=== PATIENT | male | born 1970 | race Caucasian/White ===

== ENCOUNTER 2021-03-04 17:03 | Emergency (ER) | payer OTHER ==
[~2021-03-04] VITALS: Ht 182.9 cm; Wt 86.2 kg
[2021-03-04 18:05] LABS: ABSOLUTE NEUTROPHILS 3.8 thou/uL (1.4-8.2); BASOPHILS 0.5 % (0.0-2.0); HEMATOCRIT 48.1 % (42.0-52.0); HEMOGLOBIN 16.7 gm/dL (14.0-18.0); LYMPHOCYTES 15.4 % (24.0-44.0); MCHC 34.7 g/dL (28.0-37.0); MCV 89.2 fL (80.0-100.0); MONOCYTES 7.6 % (1.0-8.0); PLATELET COUNT 137 thou/uL (150-400); POLYS 76.5 % (36.0-66.0); RDW 13.3 % (10.5-14.5); WBC 4.9 thou/uL (4.0-11.0)
[2021-03-04 18:14] LABS: CALCIUM 9.2 mg/dL (8.5-10.1); CREATININE 1.2 mg/dL (0.7-1.3); POTASSIUM 3.9 mmol/L (3.5-5.1)
[2021-03-04 18:20] LABS: ALBUMIN 3.9 g/dL (3.4-5.0); TOTAL BILIRUBIN 0.9 mg/dL (0.2-1.0); TOTAL PROTEIN 7.6 g/dL (6.4-8.2)
[2021-03-04 19:16] VITALS: BP 125/88
[2021-03-04] MEDS ORDERED: ZPAK PO (19:23)
== END 2021-03-04 19:23 | disposition home or self-care (01) ==
LOC: ER 17:03
PROVIDERS: Nurse Practitioner
DX: U07.1 COVID-19 (principal); R53.83 Other fatigue; R50.9 Fever, unspecified; Z91.011 Allergy to milk products

== ENCOUNTER 2021-03-07 18:14 | Inpatient (IN) | payer OTHER ==
[~2021-03-07] VITALS: Ht 182.9 cm; Wt 63.3 kg
[~2021-03-07 18:14] MED LIST: ZPAK PO
[2021-03-07 18:19] VITALS: BP 199/169
--- NOTE | 2021-03-07 18:25 | NUR ---
PT PLACED ON 4L NC IN TRIAGE
[2021-03-07 19:03] LABS: ABSOLUTE NEUTROPHILS 6.2 thou/uL (1.4-8.2); BASOPHILS 0.2 % (0.0-2.0); HEMATOCRIT 43.5 % (42.0-52.0); LYMPHOCYTES 8.3 % (24.0-44.0); MCH 30.8 pg (26.0-34.0); MCHC 34.5 g/dL (28.0-37.0); MCV 89.4 fL (80.0-100.0); MONOCYTES 4.4 % (1.0-8.0); PLATELET COUNT 217 thou/uL (150-400); POLYS 87.1 % (36.0-66.0); RBC 4.87 mil/uL (4.50-6.00); RDW 13.4 % (10.5-14.5); WBC 7.2 thou/uL (4.0-11.0)
[2021-03-07 19:07] LABS: BE(vivo) -1.7 mmol/L (-2 to +3); PCO2 34.7 mmHg (35.0-45.0); PO2 129.1 mmHg (80.0-100.0); sO2 98.6 % (92.0-98.0)
--- NOTE | 2021-03-07 19:07 | NUR ---
-REGIS HOLM [id number]
[2021-03-07 19:13] LABS: CALCIUM 8.3 mg/dL (8.5-10.1); CREATININE 1.1 mg/dL (0.7-1.3)
[2021-03-07 19:17] LABS: ALBUMIN 2.9 g/dL (3.4-5.0); TOTAL BILIRUBIN 0.8 mg/dL (0.2-1.0); TOTAL PROTEIN 6.8 g/dL (6.4-8.2)
[2021-03-07 21:44] VITALS: BP 134/78
[2021-03-07 22:10] VITALS: BP 135/79
[2021-03-08] VITALS (30 sets, daily range): BP systolic 120–166; BP diastolic 68–105
--- NOTE | 2021-03-08 07:30 | EKG ---
[address] [address] ELECTROCARDIOGRAM REPORT Name: BELLA HOLM MARQUIS Room #: 356-P ADM IN M.R.#: [id number] Admission: 03/07/21 Attend Phys: Nelson Diana MD Discharge: Date of : 72 Report #: [id number] [facility] ED Test Date: 2021-03-07 Test Time: 18:40:17 Pat Name: BELLA HOLM Department: Room: 356 Gender: M Clinical Therapist: MELITA : 1970 Requested By: Taurus Acevedo Order Number: [id number] MD: Marquis Benton Measurements Intervals [place] Rate: 89 P: 41 VA: 130 QRS: 26 QRSD: 87 T: -8 QT: 346 QTc: 421 Interpretive Statements Sinus rhythm Left atrial enlargement Borderline T wave abnormalities No previous ECG available for comparison Electronically Signed On 03-08-2021 7:30:41 CDT by Marquis Benton [email or web address] <ELECTRONICALLY SIGNED> By: Marquis Benton MD, [facility] 03/08/21 0730 [id number] Marquis Bentno MD, FACC /EPI
--- NOTE | 2021-03-08 07:47 | NUR ---
PT ARRIVED FROM ER ON OPTIFLOW. ADMISSION COMPLETED, CARE PLAN IN PLACE AND INTERVENTIONS STARTED. PT A/0X4, FROM HOME AND DID NOT RECEIVE THE VACCINE. PT COMPLAINT WAS DUE TO FORCE OF OPTIFLOW, PT PLACED BACK ON NRB. VSS, AND PT ORIENTATED TO ROOM.
--- NOTE | 2021-03-08 13:56 | NUR ---
INITIAL ASSESSMENT: Received consult. SW reviewed chart and spoke with nursing and attending physician. Pt was admitted from home due to COVID. Pt has not received a COVID vaccine. Pt had first positive COVID test on 03/01. Pt came to the [facility] ER on 03/04 and then returned to the ER on 03/07 due to worsening COVID symptoms. Pt is afebrile and requiring high flow O2. Pt is on IV steroids. Pt transferred to ICU from . Per chart, pt is alert/orientated x 4. 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 Pt lives at home with his . Pt does not have health insurance. [facility] to screen pt for [place]-Medicaid application. SW to follow up with pt and/or family at a later time to obtain info for assessment and to assist as needed with discharge planning.
--- NOTE | 2021-03-08 14:42 | NUR ---
PT ARRIVED TO THE UNIT FROM 3W W/ RN AND WARNING COORDINATION METEOROLOGIST ESCORT. PT ARRIVED ON 15L NRB SAT AT 95% W/ RR OF >35. PT ORDERED BY TO BE ON BIPAP PRN NEEDED, PICC LINE INSERTION ORDERED WELL. WAS NOTIFIED, PT 4 DIGIT CODE PROVIDED GIVEN IDENTIFY VERIFICATION TO THE , PT BELONGING INCLUDES PHONE, AND CLOTHING. RT SETTING UP OPTIFLOW TREATMENT AT THIS TIME. PT WAS ABLE TO TOLERATE SIPS OF WATER FOR MEDS BUT WAS SEEN TO BE IN DISTRESS. PT WAS ORIENTED TO THE UNIT AND ITS STAFF MEMBERS. ALL APPROPERIATE ORDERED MEDICATION RUNNING AT THIS TIME, FIRST DOSE OF REMDESEVIR PROVIDED. RN WILL CONTINUE TO MONITOR AT THIS TIME
[2021-03-08 17:11] LABS: D-DIMER 0.68 ug/mLFEU (0.19-0.50)
--- NOTE | 2021-03-08 17:34 | NUR ---
CONSULTED TO PLACE A PICC FOR A PATIENT ADMITTED WITH COVID/SEPSIS. ORDER AND CONSENT NOTED. THE PROCEDURE WELL BENIFITS AND RISKS WERE DISCUSSED AND HE VERBALIZED UNDERSTANDING. THE RIGHT BASILIC WAS WIDLEY PATENT. A #5F TRIPLE LUMEN POWER PICC WAS PLACED AFTER A BEDSIDE TIMEOUT WAS COMPLETED. THE LINE WAS TRIMMED TO 45CM AND ADVANCED TO 1CM EXTERNAL. THE LINE WAS CONFIRMED WITH SHERLOCK 3CG AND RELEASED FOR USE
[2021-03-08 17:59] LABS: FIBRINOGEN > 860 mg/dL (201-437)
--- NOTE | 2021-03-08 20:54 | NUR ---
Pt's called for an updates.
--- NOTE | 2021-03-08 23:15 | NUR ---
Pt is well tolerating Intubation procedure. Start propofol gtt for vent management. Will ontain CXR stat.
[2021-03-09] VITALS (88 sets, daily range): BP systolic 100–186; BP diastolic 63–105
[2021-03-09 00:13] LABS: BE(vivo) -3.1 mmol/L (-2 to +3); HCO3 22.7 mmol/L (22.0-26.0); PCO2 43.5 mmHg (35.0-45.0); PO2 195.9 mmHg (80.0-100.0); pH 7.336 (7.360-7.450); sO2 99.3 % (92.0-98.0)
--- NOTE | 2021-03-09 00:24 | NUR ---
Updates family (his father and his ) regarding of current conditions post intubation. All questions were answered. Will call family with any changes on his status.
[2021-03-09 01:54] LABS: URINE BILIRUBIN NEGATIVE (Negative); URINE BLOOD 2+ (Negative); URINE CLARITY CLEAR; URINE COLOR YELLOW; URINE GLUCOSE-RANDOM* NEGATIVE (Negative); URINE KETONES NEGATIVE (Negative); URINE LEUKOCYTES-REFLEX NEGATIVE (Negative); URINE NITRITE-REFLEX NEGATIVE (Negative); URINE PROTEIN (DIPSTICK) NEGATIVE (Negative); URINE SPECIFIC GRAVITY 1.015 (1.005-1.035); URINE UROBILINOGEN 0.2 E.U./dl (0.2-1.0)
[2021-03-09 02:06] LABS: SQUAMOUS 0-3 Few /LPF (0-3)
[2021-03-09 02:07] LABS: BACTERIA-REFLEX 1-9 Few /HPF (None Seen); CASTS None Seen /LPF (None Seen); CRYSTALS None Seen /LPF (None Seen); MUCUS 0-3 Light strn/LPF (None Seen); URINE RBC 3-10 Few /HPF (NONE SEEN); URINE WBC-REFLEX 0-5 Rare /HPF (0-5)
[2021-03-09 05:23] LABS: ABSOLUTE NEUTROPHILS 5.8 thou/uL (1.4-8.2); BASOPHILS 0.2 % (0.0-2.0); HEMATOCRIT 40.6 % (42.0-52.0); HEMOGLOBIN 13.8 gm/dL (14.0-18.0); LYMPHOCYTES 12.9 % (24.0-44.0); MCH 30.9 pg (26.0-34.0); MCV 90.9 fL (80.0-100.0); MONOCYTES 4.9 % (1.0-8.0); RBC 4.47 mil/uL (4.50-6.00); RDW 13.4 % (10.5-14.5); WBC 7.1 thou/uL (4.0-11.0)
[2021-03-09 06:03] LABS: PLATELET COUNT 313 thou/uL (150-400)
[2021-03-09 06:40] LABS: CREATININE 0.8 mg/dL (0.7-1.3); DIRECT BILIRUBIN 0.1 mg/dL (<0.1-0.2); POTASSIUM 4.3 mmol/L (3.5-5.1); TOTAL BILIRUBIN 0.4 mg/dL (0.2-1.0)
[2021-03-09 06:41] LABS: ALBUMIN 2.3 g/dL (3.4-5.0); CALCIUM 7.9 mg/dL (8.5-10.1); PHOSPHORUS 3.6 mg/dL (2.6-4.7); TOTAL PROTEIN 6.2 g/dL (6.4-8.2)
--- NOTE | 2021-03-09 08:11 | NUR ---
Call pt's family and updates them again this morning. All questions were answered to them. Re-assuring family that we will call them if there is any changes of his conditions. Report hand off to day shift RN.
--- NOTE | 2021-03-09 08:11 | NUR ---
Updates pt's father regarding of his current conditions.
--- NOTE | 2021-03-09 10:57 | NUR ---
Chart review. Vent. COVID +. Transfered down yesterday from 3w. Covid tx in place. Remdesivir. ID following. No anticipated dc over the weekend. Will cont following as needed for dc needs.
--- NOTE | 2021-03-09 11:41 | NUR ---
Nutrition: Pt npo day 2, intubated. If appropriate to start enteral feeds, REC Vital HP to reach 60 mL/hr with current propofol demands.
[2021-03-09 17:34] LABS: CREATININE 0.8 mg/dL (0.7-1.3); MAGNESIUM 1.7 mg/dL (1.8-2.4); POTASSIUM 3.5 mmol/L (3.5-5.1)
[2021-03-09 17:41] LABS: CALCIUM 5.9 mg/dL (8.5-10.1)
--- NOTE | 2021-03-09 20:09 | NUR ---
1500: dad updated 1530: pt having SB mid 30s with PAT, BMP,MG labs drawn and EKG ordered. Results: Ca:5.9; K:3.5; M.7 ; Dr wynne. 1600: updated 1800: EKG: SB with PACs
[2021-03-10] VITALS (41 sets, daily range): BP systolic 101–154; BP diastolic 60–94
[2021-03-10 02:06] LABS: HIV ANTIBODY Non Reactive (Non Reactive)
[2021-03-10 05:06] LABS: HEMATOCRIT 38.8 % (42.0-52.0); HEMOGLOBIN 14.2 gm/dL (14.0-18.0); MCH 32.9 pg (26.0-34.0); MCHC 36.6 g/dL (28.0-37.0); RBC 4.31 mil/uL (4.50-6.00); RDW 13.2 % (10.5-14.5); WBC 7.8 thou/uL (4.0-11.0)
[2021-03-10 06:50] LABS: ALBUMIN 2.2 g/dL (3.4-5.0); ANION GAP 8 mmol/L (7-16); BUN 19 mg/dL (7-18); CHLORIDE 111 mmol/L (98-107); CO2 25 mmol/L (21-32); CREATININE 0.9 mg/dL (0.7-1.3); DIRECT BILIRUBIN < 0.1 mg/dL (<0.1-0.2); GLUCOSE 143 mg/dL (74-106); PHOSPHORUS 2.8 mg/dL (2.6-4.7); SGOT 22 U/L (15-37); SGPT 20 U/L (16-63); SODIUM 144 mmol/L (136-145); TOTAL BILIRUBIN 0.4 mg/dL (0.2-1.0); TOTAL PROTEIN 5.7 g/dL (6.4-8.2)
[2021-03-10 06:55] LABS: CALCIUM 8.2 mg/dL (8.5-10.1); POTASSIUM 4.6 mmol/L (3.5-5.1)
--- NOTE | 2021-03-10 08:03 | NUR ---
1929-SPOKE W/ PT'S FATHER ON PHONE, UPDATES PROVIDED. 2149-SPOKE W/ PT'S , UPDATES PROVIDED. 2129-DOPAMINE OFF D/T ELEVATED BP. 2199-PLACED ON BAREHUGGER D/T LOW TEMPS. 2229--INCREASED FIO2 TO 50%. TOOK BAREHUGGER OFF AROUND 0400. NO FURTHER CONCERNS.
--- NOTE | 2021-03-10 12:21 | EKG ---
[address] [address] ELECTROCARDIOGRAM REPORT Name: BELLA HOLM Room #: 236-P ADM IN M.R.#: [id number] Admission: 03/07/21 Attend Phys: Nelson Diana MD Discharge: Date of : 72 Report #: [id number] [facility] Test Date: 2021-03-09 Test Time: 18:15:40 Pat Name: BELLA HOLM Department: Room: 236 P Gender: M Stock Trader: FSCHWALBE : 1970 Requested By: Nelson Diana Order Number: [id number] MD: Drew Suarez Measurements Intervals [place] Rate: 45 P: 54 TX: 129 QRS: 74 QRSD: 98 T: 54 QT: 479 QTc: 415 Interpretive Statements Sinus bradycardia Atrial premature complex Compared to ECG 03/07/2021 18:40:17 Atrial premature complex(es) now present Sinus rhythm no longer present Atrial abnormality no longer present T-wave abnormality no longer present Electronically Signed On 03-10-2021 12:21:08 CDT by Drew Suarez [email or web address] <ELECTRONICALLY SIGNED> By: Drew Suarez MD 03/10/21 1221 1815 1815 Drew Suarez MD /EPI
--- NOTE | 2021-03-10 20:23 | NUR ---
MORNING AND AFTERNOON: , MOTHER, AND FATHER ALL UPDATED REGARDING PT STATUS
[2021-03-11] VITALS (18 sets, daily range): BP systolic 142–176; BP diastolic 87–101
[2021-03-11 05:55] LABS: HEMATOCRIT 41.1 % (42.0-52.0); MCH 30.8 pg (26.0-34.0); MCHC 33.9 g/dL (28.0-37.0); MCV 90.7 fL (80.0-100.0); RBC 4.54 mil/uL (4.50-6.00); RDW 13.5 % (10.5-14.5); WBC 8.9 thou/uL (4.0-11.0)
[2021-03-11 06:21] LABS: ALBUMIN 2.1 g/dL (3.4-5.0); CALCIUM 7.3 mg/dL (8.5-10.1); CREATININE 0.8 mg/dL (0.7-1.3); DIRECT BILIRUBIN 0.1 mg/dL (<0.1-0.2); PHOSPHORUS 2.4 mg/dL (2.5-4.9); POTASSIUM 4.4 mmol/L (3.5-5.1); TOTAL BILIRUBIN 0.4 mg/dL (0.2-1.0); TOTAL PROTEIN 5.5 g/dL (6.4-8.2)
--- NOTE | 2021-03-11 08:20 | NUR ---
ASSUMED CARE AT 1900. 2200-SPOKE W/ PT'S FATHER, GAVE UPDATE. 2300-PLACED ON BAREHUGGER. 0000-SPOKE TO PT'S , GAVE UPDATE. MAINTAINED DRIPS AT SAME RATE OVERNIGHT, NO CHANGES TO VENT SETTINGS. NOTED TO HAVE HIGH RESIDUALS DESPITE LOW RATE ON TUBE FEED. HYPOACTIVE BOWEL SOUNDS, W/SOME TYPMANIC/TINKLING NOISES THIS AM. SLOW PROGRESSION TOWARDS GOALS.
--- NOTE | 2021-03-11 15:42 | NUR ---
ASSUMED CARE OF PATIENT AT 0600. FOUND PATIENT ON SETTINGS OF 20/450/.50 +14. DURING THE SHIFT I WAS ABLE TO TITRATE THE PATIENT TO 40% AND 12 OF PEEP AND HE HAS MAINTAINED HIS SATURATION AND SHOWN NO SIGNS OF DISTRESS. WE WILL BEGIN PRONING THIS PATIENT PER DR MICHELLE THE MORNING OF 03/12 AT 0100.
[2021-03-12] VITALS (48 sets, daily range): BP systolic 99–159; BP diastolic 57–100
[2021-03-12 05:42] LABS: HEMATOCRIT 36.5 % (42.0-52.0); HEMOGLOBIN 12.6 gm/dL (14.0-18.0); MCH 31.3 pg (26.0-34.0); MCHC 34.6 g/dL (28.0-37.0); MCV 90.3 fL (80.0-100.0); RBC 4.04 mil/uL (4.50-6.00); RDW 13.3 % (10.5-14.5); WBC 7.4 thou/uL (4.0-11.0)
[2021-03-12 06:18] LABS: ALBUMIN 1.8 g/dL (3.4-5.0); ANION GAP 11 mmol/L (7-16); BUN 14 mg/dL (7-18); CALCIUM 6.3 mg/dL (8.5-10.1); CHLORIDE 109 mmol/L (98-107); CO2 22 mmol/L (21-32); CREATININE 0.6 mg/dL (0.7-1.3); DIRECT BILIRUBIN < 0.1 mg/dL (<0.1-0.2); GLUCOSE 140 mg/dL (74-106); PHOSPHORUS 1.8 mg/dL (2.6-4.7); POTASSIUM 3.9 mmol/L (3.5-5.1); SGPT 30 U/L (16-63); SODIUM 142 mmol/L (136-145); TOTAL BILIRUBIN 0.5 mg/dL (0.2-1.0); TOTAL PROTEIN 4.5 g/dL (6.4-8.2)
[2021-03-12 06:24] LABS: SGOT 23 U/L (15-37)
--- NOTE | 2021-03-12 07:35 | EKG ---
[address] [address] ELECTROCARDIOGRAM REPORT Name: BELLA HOLM MARQUIS Room #: 236-P ADM IN M.R.#: [id number] Admission: 03/07/21 Attend Phys: Nelson Diana MD Discharge: Date of : 72 Report #: [id number] [facility] Test Date: 2021-03-11 Test Time: 18:55:20 Pat Name: BELLA HOLM Department: Room: 236 P Gender: M Station Examiner: 0 : 1970 Requested By: Nelson Diana Order Number: [id number] MD: Marquis Benton Measurements Intervals [place] Rate: 41 P: 43 AK: 128 QRS: 75 QRSD: 109 T: 40 QT: 539 QTc: 446 Interpretive Statements Sinus bradycardia Borderline T wave abnormalities Borderline ST elevation, anterior leads Baseline wander in lead(s) V3 Compared to ECG 03/09/2021 18:15:40 T-wave abnormality now present ST (T wave) deviation now present Atrial premature complex(es) no longer present Electronically Signed On 03-12-2021 7:34:46 CDT by Marquis Benton [email or web address] <ELECTRONICALLY SIGNED> By: Marquis Benton MD, [facility] 03/12/21 0734 1855 54 Marquis Benton MD, [facility] /EPI
--- NOTE | 2021-03-12 07:40 | NUR ---
ASSUMED CARE AT 1900. PLACED BAREHUGGER ON PT EARLY IN SHIFT D/T COOL TEMPS. BEGAN TITRATING SEDATION DOWN TO IMPROVE HEART RATE. 2149-SPOKE W/ PT'S FATHER, GAVE UPDATE. SLOWLY PROGRESSING TOWARDS GOALS.
[2021-03-12 08:48] LABS: BE(vivo) -0.9 mmol/L (-2 to +3); HCO3 26.4 mmol/L (22.0-26.0); PCO2 54.1 mmHg (35.0-45.0); pH 7.307 (7.360-7.450)
--- NOTE | 2021-03-12 15:30 | NUR ---
chart review. COVID+, Discussed during los. Vent, nutritional support. Cont on enhanced isolation. Bedside nurses have provided updates to his family. Will cont following as needed for dc needs.
[2021-03-12 22:10] LABS: CALCIUM 6.7 mg/dL (8.5-10.1); CREATININE 0.8 mg/dL (0.7-1.3); POTASSIUM 4.2 mmol/L (3.5-5.1)
[2021-03-13] VITALS (55 sets, daily range): BP systolic 14–196; BP diastolic 36–110
[2021-03-13 05:11] LABS: PO2 83.9 mmHg (80.0-100.0); pH 7.368 (7.360-7.450); sO2 95.9 % (92.0-98.0)
[2021-03-13 05:15] LABS: ABSOLUTE NEUTROPHILS 7.6 thou/uL (1.4-8.2); BASOPHILS 0.5 % (0.0-2.0); HEMATOCRIT 40.9 % (42.0-52.0); HEMOGLOBIN 14.3 gm/dL (14.0-18.0); LYMPHOCYTES 11.4 % (24.0-44.0); MCH 31.6 pg (26.0-34.0); MCHC 35.1 g/dL (28.0-37.0); MONOCYTES 5.5 % (1.0-8.0); PLATELET COUNT 401 thou/uL (150-400); POLYS 82.6 % (36.0-66.0); RBC 4.54 mil/uL (4.50-6.00); RDW 13.4 % (10.5-14.5); WBC 9.2 thou/uL (4.0-11.0)
[2021-03-13 06:09] LABS: ALBUMIN 2.1 g/dL (3.4-5.0); CALCIUM 6.7 mg/dL (8.5-10.1); CREATININE 0.6 mg/dL (0.7-1.3); POTASSIUM 4.5 mmol/L (3.5-5.1); TOTAL BILIRUBIN 1.1 mg/dL (0.2-1.0)
[2021-03-13 06:25] LABS: TOTAL PROTEIN 5.2 g/dL (6.4-8.2)
[2021-03-13 06:31] LABS: DIRECT BILIRUBIN < 0.1 mg/dL (<0.1-0.2); PHOSPHORUS 3.6 mg/dL (2.5-4.9); TRIGLYCERIDE 1072 mg/dL (<150)
--- NOTE | 2021-03-13 10:27 | NUR ---
Patient's , Samantha, and mom, Jessa, updated on patient condition and plan of care. Questions answered.
--- NOTE | 2021-03-13 18:01 | NUR ---
Patient proned at 1500, increased sedation to allow patient to tolerate. Patient attempted to sit up while in prone position. Dr. Kendall notified. ok to increase sedation parameters.
[2021-03-14] VITALS (64 sets, daily range): BP systolic 115–189; BP diastolic 69–110
[2021-03-14 05:18] LABS: ABSOLUTE NEUTROPHILS 7.3 thou/uL (1.4-8.2); BASOPHILS 0.4 % (0.0-2.0); EOSINOPHILS 0.2 % (0.0-3.0); HEMATOCRIT 40.6 % (42.0-52.0); HEMOGLOBIN 14.2 gm/dL (14.0-18.0); LYMPHOCYTES 10.7 % (24.0-44.0); MCH 31.3 pg (26.0-34.0); MCV 89.5 fL (80.0-100.0); MONOCYTES 5.4 % (1.0-8.0); PLATELET COUNT 332 thou/uL (150-400); POLYS 83.3 % (36.0-66.0); RBC 4.54 mil/uL (4.50-6.00); RDW 12.9 % (10.5-14.5); WBC 8.8 thou/uL (4.0-11.0)
[2021-03-14 05:45] LABS: ALBUMIN 2.2 g/dL (3.4-5.0); CALCIUM 7.4 mg/dL (8.5-10.1); CREATININE 0.5 mg/dL (0.7-1.3); DIRECT BILIRUBIN 0.2 mg/dL (<0.1-0.2); PHOSPHORUS 3.3 mg/dL (2.5-4.9); POTASSIUM 4.5 mmol/L (3.5-5.1); TOTAL PROTEIN 5.2 g/dL (6.4-8.2)
--- NOTE | 2021-03-14 08:20 | NUR ---
updated on patient condition overnight. She requested to have MD call a family member who is a doctor. Dr. Ayers at [phone]. Dr. Kendall notified and given information.
--- NOTE | 2021-03-14 12:23 | NUR ---
Work note delivered to bedside nurse for when family comes to hospital to get pt cell phone, family know they are not able to visit r/t COVID +.
--- NOTE | 2021-03-14 12:51 | NUR ---
Work release letter and patient's cell phone sent home with patient's . She was updated on patient condition and plan of care at this time as well.
[2021-03-15] VITALS (81 sets, daily range): BP systolic 90–164; BP diastolic 54–104
[2021-03-15 05:02] LABS: BE(vivo) 4.4 mmol/L (-2 to +3); HCO3 29.9 mmol/L (22.0-26.0); PO2 80.9 mmHg (80.0-100.0); pH 7.413 (7.360-7.450)
[2021-03-15 05:39] LABS: BASOPHILS 0.2 % (0.0-2.0); EOSINOPHILS 0.3 % (0.0-3.0); HEMATOCRIT 39.4 % (42.0-52.0); HEMOGLOBIN 13.5 gm/dL (14.0-18.0); LYMPHOCYTES 6.8 % (24.0-44.0); MCH 30.4 pg (26.0-34.0); MCHC 34.3 g/dL (28.0-37.0); MCV 88.8 fL (80.0-100.0); MONOCYTES 5.9 % (1.0-8.0); PLATELET COUNT 311 thou/uL (150-400); POLYS 86.8 % (36.0-66.0); RBC 4.44 mil/uL (4.50-6.00); RDW 12.8 % (10.5-14.5); WBC 9.3 thou/uL (4.0-11.0)
[2021-03-15 06:04] LABS: ALBUMIN 2.2 g/dL (3.4-5.0); CALCIUM 7.3 mg/dL (8.5-10.1); CREATININE 0.6 mg/dL (0.7-1.3); DIRECT BILIRUBIN 0.2 mg/dL (<0.1-0.2); PHOSPHORUS 2.7 mg/dL (2.5-4.9); POTASSIUM 4.4 mmol/L (3.5-5.1); TOTAL BILIRUBIN 1.1 mg/dL (0.2-1.0); TOTAL PROTEIN 5.1 g/dL (6.4-8.2)
--- NOTE | 2021-03-15 06:56 | NUR ---
Spoke with RT Shaun at this time to relay Dr. Kendall's order to advance ETT 4-5 cm. RT Shaun to be at pt's beside shortly.
[2021-03-15 09:29] LABS: T-SPOT.TB Negative
--- NOTE | 2021-03-15 15:07 | NUR ---
PT IS PROGRESSING TOWARDS DISCHARGE AT THIS TIME, PRONING BEING DONE ON A SHIFT BASIS, PT APPEARS ADQUEATELY SEDATED AND RELAXED AT THIS TIME, PT'S FAMILY MEMBER () CALLED, RN PROVIDED CURRENT CLINICAL PICTURE, PT'S ASKED WHETHER PT IS GETTING BETTER OR NOT, RN STATED THAT IT HAS BEEN A WHILE SINCE RN HAD THE PT SO DOES NOT KNOW THE PROGRESS BUT STATED THAT HE IS ON 40% ON VENTILATOR. RN ALSO STATED THAT EVERYDAY PTS ARE EVALUATED FOR WHETHER APPROPERIATE FOR ABILITY TO COME OFF OF VENTILATOR AND IS THE MD'S DECISION.
[2021-03-16] VITALS (29 sets, daily range): BP systolic 101–169; BP diastolic 69–128
--- NOTE | 2021-03-16 05:26 | NUR ---
PT HAD SHORT EPISODE OF TACHYCARDIA AT BEGINNING OF SHIFT, PASSED GAS AND SMALL STOOL AND HR NORMALIZED IN THE 70'S. BRADYCARDIA INTERMITTENTLY, PRECEDEX TITRATED DOWN. PT TOLERATED PRONING WELL, PROCESS OF SUPINATION WAS SMOOTH AND UNEVENTFUL. FACIAL EDEMA AND NOTED SMALL ESCORIATION ON FACE FROM DEVICE USED TO ELEVATE HEAD FROM BED. SATS >95% ON FI02 OF 40%. TOLERATING TF AFTER DOSE OF REGLAN.
[2021-03-16 05:36] LABS: ALBUMIN 2.3 g/dL (3.4-5.0); CALCIUM 7.8 mg/dL (8.5-10.1); CREATININE 0.5 mg/dL (0.7-1.3); DIRECT BILIRUBIN 0.2 mg/dL (<0.1-0.2); POTASSIUM 4.6 mmol/L (3.5-5.1); TOTAL PROTEIN 5.5 g/dL (6.4-8.2)
--- NOTE | 2021-03-16 08:21 | NUR ---
Sedation vacation beginning at 0750 - fentanyl and versed held, precedex still running at 1.2. Pt became tachycardic into 130's and overbreathing vent but maintaining O2 and BP. RN to titrate back on per plan.
--- NOTE | 2021-03-16 14:51 | NUR ---
Chart review, discussed during am unite rounds and los. +COVID, remains on vent with nutritional support. prone as ordered by MD. Spoke with [place] via phone call, no concerns voiced. will cont. following s needed for dc needs.
[2021-03-17] VITALS (23 sets, daily range): BP systolic 107–170; BP diastolic 68–111
[2021-03-17 06:43] LABS: ABSOLUTE NEUTROPHILS 5.6 thou/uL (1.4-8.2); BASOPHILS 0.1 % (0.0-2.0); EOSINOPHILS 0.7 % (0.0-3.0); HEMATOCRIT 38.3 % (42.0-52.0); HEMOGLOBIN 13.1 gm/dL (14.0-18.0); LYMPHOCYTES 11.4 % (24.0-44.0); MCH 30.6 pg (26.0-34.0); MCHC 34.2 g/dL (28.0-37.0); MCV 89.5 fL (80.0-100.0); MONOCYTES 14.9 % (1.0-8.0); PLATELET COUNT 295 thou/uL (150-400); POLYS 72.9 % (36.0-66.0); RBC 4.28 mil/uL (4.50-6.00); RDW 12.9 % (10.5-14.5); WBC 7.7 thou/uL (4.0-11.0)
[2021-03-17 07:10] LABS: ALBUMIN 2.4 g/dL (3.4-5.0); CALCIUM 7.8 mg/dL (8.5-10.1); CREATININE 0.5 mg/dL (0.7-1.3); POTASSIUM 4.4 mmol/L (3.5-5.1); TOTAL BILIRUBIN 1.1 mg/dL (0.2-1.0); TOTAL PROTEIN 5.2 g/dL (6.4-8.2)
--- NOTE | 2021-03-17 07:14 | NUR ---
PT INTERMITTENTLY WAKING, SOMETIMES SPONTANEOUSLY AND SOMETIMES AFTER NURSING CARES, HR INCREASING UP TO 150'S, BP 160'S/100'S. REQUIRING INCREASING SEDATION TO CALM, DOES NOT RESPOND TO VERBAL REDIRECTION. FOLLOWS COMMANDS AND INTERACTS BY NODDING HEAD. WHILE RESTING, HR DECREASES DOWN TO 40'S, SEDATION LIGHTENED SLOWLY ACCORDINGLY TO KEEP HR >55. INCREASED UOP, TOLERATES TURNS, NO BM. NOT TOLERATING TF.
[2021-03-18] VITALS (57 sets, daily range): BP systolic 100–182; BP diastolic 64–120
--- NOTE | 2021-03-18 06:50 | NUR ---
ABLE TO COORDINATE FACETIME WITH PARENTS AND WITH . PT EXTREMELY RESTLESS AT BEGINNING OF SHIFT, EVENTUALLY SETTLED DOWN AFTER SOME PUSHES AND SEROQUEL. RESTING QUIETLY FOR REST OF SHIFT.
--- NOTE | 2021-03-18 11:38 | NUR ---
1050HRS - PT'S CALLED AND WAS INFORMED AND UPDATED ON PT CONDITION.
--- NOTE | 2021-03-18 22:18 | NUR ---
Patient was agitated at beginning of PM shift, maxed on sedation medication. Informed Dr. Kendall, order for propofol given. No other changes at this time.
--- NOTE | 2021-03-18 22:54 | NUR ---
Spoke with patients father dot gave him a update, all questions and concerns were updated
[2021-03-19] VITALS (90 sets, daily range): BP systolic 75–162; BP diastolic 48–106
[2021-03-19 03:27] LABS: ABSOLUTE NEUTROPHILS 8.6 thou/uL (1.4-8.2); BASOPHILS 0.3 % (0.0-2.0); EOSINOPHILS 0.1 % (0.0-3.0); HEMATOCRIT 41.1 % (42.0-52.0); HEMOGLOBIN 13.9 gm/dL (14.0-18.0); LYMPHOCYTES 9.3 % (24.0-44.0); MCH 30.4 pg (26.0-34.0); MCHC 33.9 g/dL (28.0-37.0); MCV 89.8 fL (80.0-100.0); MONOCYTES 10.5 % (1.0-8.0); PLATELET COUNT 321 thou/uL (150-400); POLYS 79.8 % (36.0-66.0); RBC 4.58 mil/uL (4.50-6.00); RDW 12.8 % (10.5-14.5); WBC 10.7 thou/uL (4.0-11.0)
[2021-03-19 03:42] LABS: ALBUMIN 2.8 g/dL (3.4-5.0); CALCIUM 8.5 mg/dL (8.5-10.1); CREATININE 0.7 mg/dL (0.7-1.3); POTASSIUM 4.3 mmol/L (3.5-5.1); TOTAL BILIRUBIN 1.3 mg/dL (0.2-1.0); TOTAL PROTEIN 5.8 g/dL (6.4-8.2)
[2021-03-19 04:17] LABS: BE(vivo) 2.6 mmol/L (-2 to +3); HCO3 27.1 mmol/L (22.0-26.0); PCO2 41.5 mmHg (35.0-45.0); pH 7.433 (7.360-7.450); sO2 96.7 % (92.0-98.0)
--- NOTE | 2021-03-19 09:56 | NUR ---
0955HRS - PT'S CALLED AND WAS UPDATED AND INFORMED OF HER 'S CONDITION.
--- NOTE | 2021-03-19 11:13 | NUR ---
0830HRS - BMX1 SOFT AND PASSED GAS
--- NOTE | 2021-03-19 13:27 | NUR ---
Chart review, discussed during am unite rounds and los with hospitalist. Bedside nurse cont. update and his father via phone call. Vent, cpap trials and sed vacation. Nutritional support. Will cont. following as needed for dc needs.
[2021-03-20] VITALS (86 sets, daily range): BP systolic 80–151; BP diastolic 45–104
[2021-03-20 02:36] LABS: HEMATOCRIT 42.1 % (42.0-52.0); HEMOGLOBIN 14.2 gm/dL (14.0-18.0); MCH 30.5 pg (26.0-34.0); MCHC 33.6 g/dL (28.0-37.0); MCV 90.6 fL (80.0-100.0); RBC 4.65 mil/uL (4.50-6.00); RDW 13.1 % (10.5-14.5); WBC 20.7 thou/uL (4.0-11.0)
[2021-03-20 02:44] LABS: CALCIUM 8.5 mg/dL (8.5-10.1); CREATININE 0.7 mg/dL (0.7-1.3); POTASSIUM 4.4 mmol/L (3.5-5.1)
[2021-03-20 05:23] LABS: BE(vivo) 5.4 mmol/L (-2 to +3); HCO3 30.2 mmol/L (22.0-26.0); PCO2 44.3 mmHg (35.0-45.0); PO2 73.5 mmHg (80.0-100.0); pH 7.451 (7.360-7.450); sO2 95.3 % (92.0-98.0)
--- NOTE | 2021-03-20 19:06 | NUR ---
PATIENT CONTINUES WITH PLAN OF CARE. POSSIBLE TRACH AND PEG TOMORROW. DR CARY TO DISCUSS WITH FAMILY. PATIENT CONTINUES ON SEDATION MEDICATIONS. BM TODAY. ADEQUATE URINE OUTPUT. SPOKE WITH ABOUT PATIENT UPDATE.
--- NOTE | 2021-03-20 21:36 | NUR ---
Spoke with patient after receiving patient security code. All questions and concerns were addressed. However, would like to speak with Dr before giving consent for tracheostomy and PEG tube placement. Will pass information to dayshift RN.
[2021-03-21] VITALS (36 sets, daily range): BP systolic 89–155; BP diastolic 58–100
[2021-03-21 04:48] LABS: CALCIUM 7.6 mg/dL (8.5-10.1); CREATININE 0.5 mg/dL (0.7-1.3); HEMATOCRIT 40.8 % (42.0-52.0); HEMOGLOBIN 13.7 gm/dL (14.0-18.0); MCH 30.6 pg (26.0-34.0); MCHC 33.7 g/dL (28.0-37.0); MCV 90.7 fL (80.0-100.0); POTASSIUM 3.8 mmol/L (3.5-5.1); RBC 4.49 mil/uL (4.50-6.00); RDW 13.3 % (10.5-14.5); WBC 12.4 thou/uL (4.0-11.0)
--- NOTE | 2021-03-21 11:05 | NUR ---
Discussed during los with hospitalist and unite rounds. Going for trach/peg around 1430 today. Will cont following as needed for dc needs.
--- NOTE | 2021-03-21 15:13 | NUR ---
ON THE VENT, SEDATED BUT RESTLESS. VITALS STABLE. OGT CLAMPED, NPO FOR PEG AND TRACH. SPOUSE UPDATED OVER THE PHONE. OUT OF UNIT FOR PEG/TRACH AT 1500.
--- NOTE | 2021-03-21 16:30 | NUR ---
BACK FROM O.R. TRACH AND PEG IN PLACE.
[2021-03-22] VITALS (26 sets, daily range): BP systolic 72–183; BP diastolic 44–113
[2021-03-22 05:27] LABS: HEMATOCRIT 39.9 % (42.0-52.0); HEMOGLOBIN 13.5 gm/dL (14.0-18.0); MCH 30.5 pg (26.0-34.0); MCHC 33.8 g/dL (28.0-37.0); MCV 90.3 fL (80.0-100.0); RBC 4.41 mil/uL (4.50-6.00); RDW 13.2 % (10.5-14.5); WBC 16.4 thou/uL (4.0-11.0)
[2021-03-22 05:45] LABS: CALCIUM 8.3 mg/dL (8.5-10.1); CREATININE 0.7 mg/dL (0.7-1.3); POTASSIUM 3.9 mmol/L (3.5-5.1)
--- NOTE | 2021-03-22 07:47 | NUR ---
Spoke with pt on phone, gave updates on CPAP trials and current status.
[2021-03-22 09:56] LABS: BE(vivo) 3.2 mmol/L (-2 to +3); HCO3 27.3 mmol/L (22.0-26.0); PCO2 40.1 mmHg (35.0-45.0); PO2 69.4 mmHg (80.0-100.0); pH 7.451 (7.360-7.450); sO2 94.7 % (92.0-98.0)
--- NOTE | 2021-03-22 10:55 | NUR ---
Trach placed 03/21 bleeding heavily even after RT intervention. fisher pound net or trap assessed and changed dressing. 10 minutes later bedside RN checked on pt to find significant amount of blood draining from trach down pt chest and left arm. Per RT, surgeon who placed trach has been notified.
--- NOTE | 2021-03-22 11:09 | NUR ---
WOUND CONSULT; I WAS CONSULTED TO ASSESS THE TRACH SITE AND GIVE RECCOMMENDATIONS RELATED TO MANAGEING THE DRAINAGE. THE TRACHE IS SUTURED IN TIGHTLY AND IT IS DIFFICULT TO GET HARDLY ANY DRESSINGS UNDER IT. THERE IS TEZ BLOOD I'M TOLD THE PATIENT IS COUGHING UP. RECOMMENDATIONS; -I WILL CONSULT DR TAN LINDO OR HIS ASSESSMENT. -FOR NOW USING BARRIER SWABS TO PROTECT THE SKIN AND A FOAM DRESSING. DISCUSSED WITH RN AND RESPIRATORY STAFF.
--- NOTE | 2021-03-22 12:01 | NUR ---
[employer] will re look into medicaid for [facility]. He go trach and peg yesterday. Will cont following as needed for dc needs. No anticipated dc over the weekend.
[2021-03-22 13:11] LABS: HEMATOCRIT 40.5 % (42.0-52.0); HEMOGLOBIN 13.8 gm/dL (14.0-18.0); MCH 30.8 pg (26.0-34.0); MCHC 34.2 g/dL (28.0-37.0); MCV 90.3 fL (80.0-100.0); RBC 4.49 mil/uL (4.50-6.00); RDW 13.4 % (10.5-14.5); WBC 18.8 thou/uL (4.0-11.0)
[2021-03-22 13:28] LABS: APTT 24.3 Seconds (24.5-32.8); D-DIMER 3.65 ug/mLFEU (0.19-0.50); INR 1.08; PROTIME 11.7 Seconds (10.5-12.1)
--- NOTE | 2021-03-22 13:47 | NUR ---
During morning rounds approx 0900 MD Loera came to pt room, looked through window at pt and new trach, then left the floor. RN was in the room at this time, trach noted to be bleeding down pt chest. Per RT, dressing had been changed twice. stripper machine operator consulted, changed dressing to pink sponge, but bleeding persisted. Per RT, Luz Maria had been notified of trach concerns. RN paged MD Loera at 1200, spoke with front office staff who paged MD. When Dr. Loera called back, RN spoke with him about profuse bleeding and concerns. stated some bleeding was normal but he would come take a look. Around 1215 RN re-entered room to find clots and blood coming from pt mouth and around trach. MD arrived, asked for gauze and assessed bleeding. RT entered room to help hold pressure on active site, RN sent coag studies and CBC to lab, called blood bank to confirm type and cross status. Palm sized clots and continuous bleeding from trach and mouth. Dr. Loera left room to gather supplies and call the OR. Bedside RN called with no answer, and then called mother listed as secondary to get consent for surgery. , Samantha, called back and confirmed consent for blood and surgery. Anesthesia arrived to take over holding pressure from another bedside RN and to transport pt to OR. New blood bank wristband placed on pt, labs pending.
--- NOTE | 2021-03-22 15:33 | NUR ---
Pt returned from OR around 1500. Right radial art line with good waveform, pt tachycardic and hypertensive but resolved when sedation resumed. Per Dr. Greene he has updated pt mother, RN to update pt .
--- NOTE | 2021-03-22 16:09 | NUR ---
Per Leanna Holloway pt is no longer required to be on COVID isolation.
[2021-03-22 16:26] LABS: HEMATOCRIT 37.8 % (42.0-52.0); HEMOGLOBIN 12.9 gm/dL (14.0-18.0); MCH 30.7 pg (26.0-34.0); MCHC 34.1 g/dL (28.0-37.0); MCV 89.9 fL (80.0-100.0); RBC 4.21 mil/uL (4.50-6.00); WBC 22.1 thou/uL (4.0-11.0)
[2021-03-22 16:44] LABS: CALCIUM 8.1 mg/dL (8.5-10.1); CREATININE 0.8 mg/dL (0.7-1.3); POTASSIUM 3.8 mmol/L (3.5-5.1)
[2021-03-22 16:48] LABS: ALBUMIN 2.8 g/dL (3.4-5.0)
--- NOTE | 2021-03-22 17:33 | NUR ---
Dr. Shell at bedside, pt systolics persistently below 90. Per Dr. Shell begin levo for MAP >90. Overall pressure held on bleeding site pre-op for approx 75 min. Pt art line waveform noted to be dampened, upon further inspection pressure bag of fluids running into art line was heparin. RN changed entire set and primed with saline. updated on current status.
[2021-03-22 21:43] LABS: HEMATOCRIT 37.5 % (42.0-52.0); HEMOGLOBIN 12.5 gm/dL (14.0-18.0); MCH 30.2 pg (26.0-34.0); MCHC 33.4 g/dL (28.0-37.0); MCV 90.4 fL (80.0-100.0); RBC 4.15 mil/uL (4.50-6.00); RDW 13.3 % (10.5-14.5)
[2021-03-23] VITALS (22 sets, daily range): BP systolic 72–130; BP diastolic 42–90
[2021-03-23 05:56] LABS: HEMATOCRIT 34.8 % (42.0-52.0); MCHC 34.5 g/dL (28.0-37.0); RBC 3.87 mil/uL (4.50-6.00); RDW 13.3 % (10.5-14.5); WBC 18.2 thou/uL (4.0-11.0)
[2021-03-23 06:10] LABS: CALCIUM 7.8 mg/dL (8.5-10.1); CREATININE 0.6 mg/dL (0.7-1.3); POTASSIUM 3.9 mmol/L (3.5-5.1)
--- NOTE | 2021-03-23 06:38 | NUR ---
ASSUMED CARE AT 1900. SPOKE TO PT'S FATHER AT 2019, NO CONCERNS NOTED. PT BECAME RESTLESS AROUND 2129, INCREASED SEDATION WHICH REDUCED RESTLESS MOVEMENT. 2100-STARTED TUBE FEED AT 10 ML/HR; GAVE ONE WATER BOLUS AT MIDNIGHT. RESIDUALS KEPT CLIMBING OVERNIGHT; PRIOR TO STARTING TUBE FEED, GASTRIC CONTENT WAS 75 ML; IN AM, RESIDUAL WAS OVER 200. 0255-SPOKE TO PT'S AND UPDATED, NO CONCERNS NOTED. SLOW PROGRESSION TOWARDS GOALS.
--- NOTE | 2021-03-23 09:15 | NUR ---
RN spoke with pt , updated him on current condition and plan. Informed he is off COVID isolation and resting.
--- NOTE | 2021-03-23 13:12 | NUR ---
currently on FaceTime with patient.
--- NOTE | 2021-03-23 13:58 | NUR ---
Unable to go to [facility]. trach and peg. here in [place] medicaid meeting with hanna. CM team education that it would be with [employer] and not case management team for medicaid jenelle. She did face time with zach today per report from bedside nurse. Cont following as needed for dc needs. No anticipated discharge over the weekend. Out of isolation. Discussed during los and unite rounds.
--- NOTE | 2021-03-23 14:49 | NUR ---
Pt mother, fully vaccinated, visited bedside for 15 mintues. She insisted on wearing gloves and just holding his hand to say hello. Asked about his progress and vent settings, stated she was worried when he didn't recieve the vaccine earlier this year but is pleased with his progress this week. Stated she would call later for an update.
[2021-03-24] VITALS (66 sets, daily range): BP systolic 74–150; BP diastolic 40–93
[2021-03-24 04:51] LABS: HEMATOCRIT 33.4 % (42.0-52.0); HEMOGLOBIN 11.3 gm/dL (14.0-18.0); MCH 30.8 pg (26.0-34.0); MCHC 33.9 g/dL (28.0-37.0); RBC 3.67 mil/uL (4.50-6.00); RDW 13.5 % (10.5-14.5); WBC 12.5 thou/uL (4.0-11.0)
[2021-03-24 05:11] LABS: CALCIUM 7.5 mg/dL (8.5-10.1); CREATININE 0.5 mg/dL (0.7-1.3); POTASSIUM 3.4 mmol/L (3.5-5.1)
--- NOTE | 2021-03-24 07:23 | NUR ---
ASSUMED CARE AT 1900. SPOKE TO PT'S FATHER AT 2100, UPDATE GIVEN, NO CONCERNS NOTED. SMALL AMOUNT PURULENT DRAINAGE AROUND TRACH. FREQ TITRATION OF SEDATION AND LEVO TO MAINTAIN APPROPR BP. SLOW PROGRESSION TOWARDS GOALS.
--- NOTE | 2021-03-24 20:31 | NUR ---
PATIENT SLOWLY PROGRESSING TOWARDS PLAN OF CARE EVIDENCED BY LACK OF NEED OF LEVOPHED, HOWEVER, STILL REQUIRING SIGNIFICANT AMOUNT OF SEDATION. PATIENT'S , REGIS FACETIMED WITH PATIENT FROM 1434 - 1450.
[2021-03-25] VITALS (34 sets, daily range): BP systolic 103–151; BP diastolic 64–97
[2021-03-25 00:03] LABS: CALCIUM 7.7 mg/dL (8.5-10.1); CREATININE 0.5 mg/dL (0.7-1.3); POTASSIUM 3.8 mmol/L (3.5-5.1)
[2021-03-25 05:02] LABS: ABSOLUTE NEUTROPHILS 10.8 thou/uL (1.4-8.2); BASOPHILS 0.4 % (0.0-2.0); EOSINOPHILS 1.1 % (0.0-3.0); HEMATOCRIT 32.2 % (42.0-52.0); HEMOGLOBIN 11.2 gm/dL (14.0-18.0); LYMPHOCYTES 11.3 % (24.0-44.0); MCH 31.3 pg (26.0-34.0); MCHC 34.8 g/dL (28.0-37.0); MCV 90.1 fL (80.0-100.0); MONOCYTES 8.2 % (1.0-8.0); PLATELET COUNT 287 thou/uL (150-400); RBC 3.57 mil/uL (4.50-6.00); RDW 13.4 % (10.5-14.5); WBC 13.7 thou/uL (4.0-11.0)
[2021-03-25 06:05] LABS: ALBUMIN 2.5 g/dL (3.4-5.0); CALCIUM 7.7 mg/dL (8.5-10.1); CREATININE 0.4 mg/dL (0.7-1.3); MAGNESIUM 1.8 mg/dL (1.8-2.4); POTASSIUM 3.5 mmol/L (3.5-5.1); TOTAL BILIRUBIN 0.8 mg/dL (0.2-1.0); TOTAL PROTEIN 5.5 g/dL (6.4-8.2)
--- NOTE | 2021-03-25 06:47 | NUR ---
ASSUMED CARE AT 1900. SPOKE TO PT'S FATHER AT 2114, UPDATED, NO CONCERNS NOTED. SOFT BP AT START OF SHIFT, TITRATED SEDATION DOWN SLIGHTLY, PT BECAME MORE RESTLESS THROUGHOUT THE NIGHT, NO COMMAND FOLLOWING, INCREASED SEDATION BACK UP. AROUND MIDNIGHT, BEGAN HAVING PINK TINGED URINE, NOW THIS AM URINE IS DEEPER RED COLOR W/ SOME CLOTS/SEDIMENT PRESENT. NO BLOOD NOTED AROUND THE MEATUS. CONTINUES TO HAVE MODERATE AMOUNT OF THICK PURULENT/DARK RED DRAINAGE AROUND THE TRACH SITE, AND OCCASIONAL DARK BLOOD IN MOUTH. NO OTHER CONCERNS, POOR PROGRESSION TOWARDS GOALS.
--- NOTE | 2021-03-25 15:56 | NUR ---
Beginning around 1545 on [place] talking to pt.
[2021-03-26] VITALS (79 sets, daily range): BP systolic 79–171; BP diastolic 53–114
[2021-03-26 05:53] LABS: ABSOLUTE NEUTROPHILS 8.3 thou/uL (1.4-8.2); BASOPHILS 0.6 % (0.0-2.0); EOSINOPHILS 1.1 % (0.0-3.0); HEMATOCRIT 30.4 % (42.0-52.0); HEMOGLOBIN 10.2 gm/dL (14.0-18.0); LYMPHOCYTES 13.9 % (24.0-44.0); MCH 30.3 pg (26.0-34.0); MCHC 33.5 g/dL (28.0-37.0); MCV 90.3 fL (80.0-100.0); MONOCYTES 9.4 % (1.0-8.0); PLATELET COUNT 251 thou/uL (150-400); RBC 3.37 mil/uL (4.50-6.00); RDW 13.7 % (10.5-14.5); WBC 11.1 thou/uL (4.0-11.0)
[2021-03-26 06:00] LABS: CALCIUM 7.7 mg/dL (8.5-10.1); CREATININE 0.5 mg/dL (0.7-1.3); MAGNESIUM 1.6 mg/dL (1.8-2.4); POTASSIUM 3.1 mmol/L (3.5-5.1)
--- NOTE | 2021-03-26 06:23 | NUR ---
ASSUMED CARE AT 1900. SPOKE TO PT'S FATHER AT 2100, NO CONCERNS NOTED FROM CALL. NECK IS STILL SWOLLEN AROUND TRACH SITE AND CONTINUES TO HAVE DARK RED/BROWN/PURULENT DRAINAGE. PT CONTINUES TO HAVE FIBROUS CLOTS IN URINE. ABLE TO SQUEEZE HANDS TO COMMAND, POOR EYE TRACKING. INTERMITTENTLY RESTLESS, BUT SEEMED TO SLEEP FOR SEVERAL HOURS DURING THE NIGHT. BP LOW THIS AM AND HR IN 50'S; BEGAN TITRATING SEDATION DOWN WHICH HELPED PT WAKE UP AND BP/HR GO UP. THIS AM, PT HAS NODDED HEAD SLIGHTLY WHEN ASKED QUESTIONS WELL SQUEEZING FINGERS. POTASSIUM AND MAG LOW ON LABS, STARTED REPLACEMENT PER PROTOCOL. SLOWLY PROGRESSING TOWARDS GOALS.
--- NOTE | 2021-03-26 10:16 | NUR ---
WOUND CARE F/U; ASSESSMENT OF THE TRACH SITE REVEALS NO WOUND OF BLEEDING. OTHERWISE, A NORMAL LOOKING TRACH SITE. NO NEED TO FOLLOW WOUND CARE WILL SIGN OFF. RECONSULT IF NEEDED.
--- NOTE | 2021-03-26 10:20 | NUR ---
WOUND CONSULT; REVIEWED THER PICTURES WHICH ONLY PARTIAL THICKNESS TEAR WITH CLEANRLY FRAYED EDGES. NO DRAINAGE OR S/S OF INFECTION. ALTHOUGH I CANNOT R/O PRESSURE ETIOLOGY. THE WOUND IS SACRAL/COCCYX AREAS. RECCOMMENDATIONS; BARRIER CREAM TID. RN PRESENT.
[2021-03-26 13:25] LABS: POTASSIUM 3.9 mmol/L (3.5-5.1)
--- NOTE | 2021-03-26 14:55 | NUR ---
Chart review, discussed during am unite rounds and los. Vent, nutritional support per trach and peg. Out of isolation, r/t hx of covid. Will cont following as needed for dc needs. [employer] has been in contact with family about covid coverage and medicaid.
--- NOTE | 2021-03-26 19:00 | NUR ---
PATIENT IS STABLE AND PROGRESSING SLOWLY TOWARDS OUTCOME GOALS. PROPOFOL WEANED OFF TODAY AND DOPAMINE NOW AT 2MCG MONITOR IS SHOWING NSR WITH HEART RATE IN THE 60'S. TOLERATING TUBE FEEDING WITH SMALL RESIDUALS. CVP 7 TO 10 AFTER LASIX. WILL CONTINUE TO MONITOR.
--- NOTE | 2021-03-26 19:28 | NUR ---
PATIENT REMAINS STABLE ON VENT. TRACH HEALING, NOTED SOME SWELLING AROUND SITE. SURGERY NOTED, NO CONCERNS. OKAY TO START TUBE FEEDING, INITIATE SLOWLY AT 10 ML/HR PER DR. CARY. ATTEMPTING TO WEAN SEDATION BUT PATIENT BECOMES TACYCARDIC AND RESTLES WITH LIGHTENED SEDATION. REPLACED ELECTROLYTES PER PROTOCOL. MOTHER AT BEDSIDE TODAY. UPDATED AND SET UP FACETIME IN ROOM. LOW GRADE TEMP - TYLENOL GIVEN.
[2021-03-27] VITALS (58 sets, daily range): BP systolic 105–168; BP diastolic 71–106
--- NOTE | 2021-03-27 08:07 | NUR ---
ASSUME CARE 1900. PT/VITALS STABLE. NAP NOTED. MOVES RAMIREZ LOWER EXTREMITY. OPENS EYES AND MOVES HEAD SOMETIMES, BUT EYES DO NOT TRACT. TACHE IN PLACE WITH MODERATE SANGUINOUS DRAINAGE NOTED. TRACHE SITE CARE DONE. FECAL MANAGEMENT TUBE SYSTEM IN PLACE/LIQUID STOOL NOTED. ADEQUATE URINE OUTPUT. COUGH.GAG REFLEX NOTED. SR ON MONITOR. ASSESSMENT CHARTED. PROGRESSING MODERATELY WITH POC. POOR TOLERANCE TO TUBE FEED. INCREASED RESIDUAL. TUBE FEED STILL RUNNING AT 10ML/HR WITH 250 FLUSHES Q6H. PLAN IS TO CONTINUE TO MANAGE RESPIRATORY FUNCTION AND WEAN PT OFF VENT. WILL CONTINUE TO MONITOR AND FOLLOW WITH POC
--- NOTE | 2021-03-27 09:51 | NUR ---
Pt on FT with - set up by side of bed.
--- NOTE | 2021-03-27 10:59 | NUR ---
Mother of patient asked family general lot attendant to come by - general lot attendant currently at bedside speaking with patient.
--- NOTE | 2021-03-27 13:26 | NUR ---
Pt mom at bedside since 1300, reading to pt and keeping company.
[2021-03-28] VITALS (36 sets, daily range): BP systolic 59–150; BP diastolic 32–94
--- NOTE | 2021-03-28 01:42 | NUR ---
ASSUMED CARE OF PATIENT AT 1900. FATHER CALLED AND RECIEVED UPDATE AT 2030. CALLED AND FACETIMED WITH PATIENT AT 2200. PATIENT RESTLESS, TACHYCARDIC. ANSWERS YES/NO QUESTIONS. WORKING TOWARDS POC GOALS.
[2021-03-28 03:49] LABS: ABSOLUTE NEUTROPHILS 11.6 thou/uL (1.4-8.2); BASOPHILS 0.5 % (0.0-2.0); EOSINOPHILS 0.6 % (0.0-3.0); HEMATOCRIT 35.2 % (42.0-52.0); LYMPHOCYTES 10.3 % (24.0-44.0); MCH 30.7 pg (26.0-34.0); MCHC 34.2 g/dL (28.0-37.0); MCV 89.7 fL (80.0-100.0); MONOCYTES 7.1 % (1.0-8.0); PLATELET COUNT 269 thou/uL (150-400); POLYS 81.5 % (36.0-66.0); RBC 3.93 mil/uL (4.50-6.00); RDW 14.1 % (10.5-14.5); WBC 14.2 thou/uL (4.0-11.0)
[2021-03-28 04:05] LABS: ALBUMIN 2.8 g/dL (3.4-5.0); CALCIUM 8.5 mg/dL (8.5-10.1); CREATININE 0.5 mg/dL (0.7-1.3); POTASSIUM 3.4 mmol/L (3.5-5.1); TOTAL BILIRUBIN 1.5 mg/dL (0.2-1.0); TOTAL PROTEIN 5.9 g/dL (6.4-8.2)
[2021-03-28 04:59] LABS: BE(vivo) 2.5 mmol/L (-2 to +3); HCO3 26.3 mmol/L (22.0-26.0); PCO2 37.9 mmHg (35.0-45.0); PO2 70.6 mmHg (80.0-100.0); pH 7.459 (7.360-7.450)
--- NOTE | 2021-03-28 09:12 | NUR ---
Pt on FaceTime with . RN gave updates on clinical status.
--- NOTE | 2021-03-28 10:19 | NUR ---
Dr. Loera at bedside, stated trach looks much better than last week. Keep Ancef on for 7 days, okay to increase tube feeds/work towards goal rate.
--- NOTE | 2021-03-28 11:49 | NUR ---
Around 1100 pt bp acutely dropped to MAP in 40's, pt no longer opening eyes. RN called Dr. Kendall, begin liter of saline wide open, begin levo, sedation on hold.
--- NOTE | 2021-03-28 12:39 | NUR ---
Pt mother at bedside for visit.
--- NOTE | 2021-03-28 15:34 | NUR ---
Cm team passed on message that has question on visiting. Cm called malachi via phone call, active listen during phone call, she stated she been talking with counseling because she alone and miss being with zach and they were going to get covid vaccine together and i did not know i have to have it to visit per tearful. Education that not required to visit but covid patient can not have visitor r/t safety for visitor, he is out of isolation today but noted he has elevated temp and might want to talk with his mom and dad about visiting. I got the 1st vaccine and don't get 2nd one till 04/13 and i just want to be able to hold his hand. CM education that should check with nurse staff to see how he is doing next few days and maybe could visit. ok thank you so much for calling me back, i just miss him per malachi. Will cont following as needed for dc needs.
[2021-03-28 17:29] LABS: URINE COLOR YELLOW
[2021-03-28 17:30] LABS: URINE CLARITY CLOUDY; URINE PROTEIN (DIPSTICK) TRACE (Negative)
[2021-03-28 17:31] LABS: URINE BILIRUBIN NEGATIVE (Negative); URINE BLOOD 3+ (Negative); URINE GLUCOSE-RANDOM* NEGATIVE (Negative); URINE KETONES 2+ (Negative); URINE NITRITE-REFLEX POSITIVE (Negative)
[2021-03-28 17:32] LABS: URINE LEUKOCYTES-REFLEX 2+ (Negative); URINE UROBILINOGEN 0.2 E.U./dl (0.2-1.0)
[2021-03-28 17:38] LABS: BACTERIA-REFLEX >30 Many /HPF (None Seen); SQUAMOUS None Seen /LPF (0-3); URINE RBC 3-10 Few /HPF (NONE SEEN); URINE WBC-REFLEX >25 Many /HPF (0-5)
[2021-03-29] VITALS (44 sets, daily range): BP systolic 105–141; BP diastolic 61–84
--- NOTE | 2021-03-29 05:03 | NUR ---
ASSUMED CARE AT 1900. PT ALERT AND CALM, FOLLOWING COMMANDS. INCREASED TUBE FEED TO 30 ML/HR AT 1999, PT HAS TOLERATED WELL OVERNIGHT, HAS LOW RESIDUALS AND DENIED NAUSEA. 2214-SPOKE TO PT'S MOTHER, GAVE UPDATE ON THE EVENING, NO CONCERNS NOTED. 2229-DR. GUERRERO CALLED, GAVE HER AN UPDATE ON PT'S MENTAL STATUS, VS, AND CURRENT MEDICATIONS. 2249-PT'S CALLED, GAVE HER AN UPDATE ON HIS CONDITION, NO CONCERNS NOTED. TAPERING LEVOPHED DOWN OVERNIGHT. PT CONTINUES TO HAVE RESP RATE IN UPPER 30'S, WITH LARGE AMOUNTS OF SECRETIONS DRAINING AROUND THE TRACH TUBE. PT PROGRESSING TOWARDS GOALS.
--- NOTE | 2021-03-29 13:17 | NUR ---
able to FaceTime this AM for several minutes before work. Stated she was excited to come visit this weekend. Mother currently at bedside.
--- NOTE | 2021-03-29 16:05 | NUR ---
Chart review, discussed during am unite rounds this morning and los with hospitalist. Trach and peg with cpap trials. Therapy to work with zach. No anticipated dc over the weekend. Will cont following as needed for dc needs.
--- NOTE | 2021-03-29 16:53 | NUR ---
Pt worked with PT, sat up on side of the bed feet touching floor. Tolerated well. Pt now on FaceTime with , Samantha. Pt responding, nodding yes and no and smiling while speaking with .
--- NOTE | 2021-03-29 21:45 | NUR ---
PATIENT'S MOTHER, DERECK, CALLED FROM [phone] AND SHE WAS UPDATED AND EDUCATED ON THE PATIENT'S CONDITION AND PLAN OF CARE.
[2021-03-30] VITALS (22 sets, daily range): BP systolic 122–156; BP diastolic 68–92
[2021-03-30 05:09] LABS: ABSOLUTE NEUTROPHILS 9.9 thou/uL (1.4-8.2); BASOPHILS 0.9 % (0.0-2.0); EOSINOPHILS 0.6 % (0.0-3.0); HEMOGLOBIN 10.1 gm/dL (14.0-18.0); LYMPHOCYTES 4.7 % (24.0-44.0); MCH 31.6 pg (26.0-34.0); MCV 90.2 fL (80.0-100.0); PLATELET COUNT 241 thou/uL (150-400); POLYS 84.8 % (36.0-66.0); RBC 3.21 mil/uL (4.50-6.00); RDW 14.3 % (10.5-14.5); WBC 11.6 thou/uL (4.0-11.0)
[2021-03-30 05:22] LABS: ALBUMIN 2.3 g/dL (3.4-5.0); CALCIUM 8.1 mg/dL (8.5-10.1); CREATININE 0.7 mg/dL (0.7-1.3); MAGNESIUM 1.7 mg/dL (1.8-2.4); POTASSIUM 3.2 mmol/L (3.5-5.1); TOTAL PROTEIN 5.8 g/dL (6.4-8.2)
--- NOTE | 2021-03-30 10:16 | NUR ---
Patient proned per order at 0945. Patient desated to 61%, and only recovered to 76% after [address] Kendall notified. Patient unproned at 1000 and sat down to 42%. Dr Kendall notified and PEEP increase to 16 cm and pcxr pending Breathe sound coarse in the upper lobes and diminished in the bases.
--- NOTE | 2021-03-30 19:30 | NUR ---
PATIENT PROGRESSING IN DISMISSAL GOALS PATIENT CHANGED TO CCU STATUS. PATIENT ON TRACH MASK MOST OF DAY TOLERATING WELL. OFF SEDATIONS. VSS. PATIENT GIVEN DIULADIDX2 TODAY AND SEROQUEL PRN. FAMILY AT BEDSIDE TODAY.
--- NOTE | 2021-03-30 22:13 | NUR ---
This RN spoke to patients , mother and father at 2130. Discussed transfer orders to CCU and gave family new patient room and phone number. Plan to transfer patient to room 202 soon. Will continue to watch.
--- NOTE | 2021-03-31 01:07 | NUR ---
PT ARRIVED FROM ICU AT APPROXIMATELY MDNIGHT ALONG WITH RN X2 AND RT. PT ARRIVED ON VENTILATOR AND WAS TACHYNEIC WITH RATES IN 40'S. PER RT THIS IS WITHIN PATIENTS USUAL RATE. PT SMILING, COOPERATIVE, RATING TRACH AREA PAIN 4/10 AND TOLERABLE AT THIS TIME. SHORTLY AFTER ARRIVAL PT HEART RATE CLIMBED TO 140'S, O2 SAT FELL TO MID 80'S, RESPIRATORY RATE CLIMBED INTO THE 50'S AND PT WAS POINTING AT HIS CHEST. RT WAS PRESENT. PT REMOVED FROM VENT AND MANUALLY BAGGED. THIS RN GAVE DOSE OF VERSED. MANUAL BAGGING LASTED FOR APPROXIMATELY 10 MINUTES UNTIL PT APPEARD TO BE CALMING DOWN (NO LONGER FROWNING, NO LONGHER HOLDING HIS HAND UP AND SHAKING, RESPIRATORY RATE RETURNING TO 40'S). VENTILATOR RESUMED BY RT. WILL CLOSELY MONITOR.
--- NOTE | 2021-03-31 03:52 | NUR ---
ON VENTILATOR OVERNIGHT. MORE RELAXED SINCE DOSEING WITH VERSED. RESPIRATORY RATE REMAINS IN 40'S. PT ABLE TO SMILE AT TIMES. ATTEMPTED TO COMMUNICATE WITH PT VIA HAND WRITING BUT IT WAS TOO POOR TO BE ABLE TO DECIFER WHAT HE WAS WRITING. X1 DOSE OF DILAUDID FOR THROAT/TRACH DISCOMFORT. CONTINUE TO MONITOR.
[2021-03-31 04:32] VITALS: BP 143/90
[2021-03-31 07:26] VITALS: BP 159/107
[2021-03-31 11:12] VITALS: BP 173/93
--- NOTE | 2021-03-31 17:59 | NUR ---
PATIENT HAS RESTED IN BED THROUGH THE DAY. HE DOES HAVE RAPID RESP. AND DR SANCHEZ NOTED. ADJUSTMENT MADE TO VENT. HE IS ALERT ORIENTED X4. NOT ABLE TO VERBAILIZE NEEDS BUT IS APPROPRAITE IN RESPONSES.
[2021-03-31 19:40] VITALS: BP 124/64
[2021-03-31 20:12] LABS: HEMATOCRIT 30.8 % (42.0-52.0); HEMOGLOBIN 10.5 gm/dL (14.0-18.0); MCH 30.7 pg (26.0-34.0); MCHC 34.3 g/dL (28.0-37.0); MCV 89.7 fL (80.0-100.0); RBC 3.43 mil/uL (4.50-6.00); RDW 14.3 % (10.5-14.5); WBC 15.7 thou/uL (4.0-11.0)
[2021-03-31 20:21] LABS: CALCIUM 7.5 mg/dL (8.5-10.1); CREATININE 0.6 mg/dL (0.7-1.3); POTASSIUM 3.7 mmol/L (3.5-5.1)
[2021-04-01 00:06] VITALS: BP 128/64
[2021-04-01 04:07] VITALS: BP 137/55
--- NOTE | 2021-04-01 06:32 | NUR ---
Took over care of pt. after 1999. Elevated temp of 101.6 axillary reported to SENIOR MARKETING ENGINEER and order received. Tylenol given with good relief and has been afebrile since. Initially pt. drowsy and not following commands but once fever subsided he started waking up , smiling and following commands. Skin color back to normal , pale looking in the beginning. Family ( dad and ) called to get an update on pt. Pt. has been tachypneic at beginning of shift with RR in the 40's to 50's. Suctioned prn and oral care done. He has been repositioned prn for comfort. He slept well most of the night and awake when being turned. Tube feeding held all night per order then resume this am around 0530. RT titrated FIO2 down to 50% around 0400. MN BG reads 56 , pt. awake and responsive at that time. Rechecked BG and reads 109. SENIOR MARKETING ENGINEER notified. Incontinent of med soft bm. Protective barrier applied to buttocks.
[2021-04-01 08:00] VITALS: BP 129/76
[2021-04-01 12:23] VITALS: BP 142/79
[2021-04-01 16:00] VITALS: BP 155/84; BP 1558/84
--- NOTE | 2021-04-01 18:53 | NUR ---
RT MOVED PT TO TRACH SHIELD WITHOUT ANY ISSUE. 02 SATURATIONS ARE IN MID 90'S AND IT DECREASED PT ANXIETY AND RESPIRATIONS. TUBE FEEDING AND IVPB ANTIBIOTICS PER POC. VENEGAS IN PLACE.
[2021-04-01 20:20] VITALS: BP 153/91
[2021-04-02 04:28] VITALS: BP 152/88
[2021-04-02 07:15] VITALS: BP 128/85
--- NOTE | 2021-04-02 07:41 | NUR ---
PATIENT FEBRILE,TYLENOL GIVEN,TEMP DECREASED TO 99.6.AROUND 0340 THIS AM PT HAS EPISODE OF LABORED BREATHING,RT INCREASED FIO2 TO 100%,SO FAR PT DID NOT DESAT.RT SAID PT DOES THIS AT NIGHT;PT IS VERY ANXIOUS TOO;MEDS GIVEN.PT FELL ASLEEP.REPORT GIVEN TO DAY SHIFT RN.
[2021-04-02 10:37] LABS: ABSOLUTE NEUTROPHILS 15.4 thou/uL (1.4-8.2); EOSINOPHILS 0.2 % (0.0-3.0); HEMATOCRIT 29.4 % (42.0-52.0); HEMOGLOBIN 9.9 gm/dL (14.0-18.0); LYMPHOCYTES 2.5 % (24.0-44.0); MCH 30.6 pg (26.0-34.0); MCHC 33.7 g/dL (28.0-37.0); MCV 90.7 fL (80.0-100.0); MONOCYTES 5.7 % (1.0-8.0); PLATELET COUNT 249 thou/uL (150-400); POLYS 90.6 % (36.0-66.0); RBC 3.25 mil/uL (4.50-6.00); RDW 14.6 % (10.5-14.5)
--- NOTE | 2021-04-02 10:41 | NUR ---
Assumed care of pt this AM. Pt is oriented x4, very sleepy. Pt remains on vent/trach, settings 100% FiO2, PEEP 5, TV 600. Pt has some thin, white drainage from around trach site. Pt running fever, given PRN tylenol. Respiratory rate up in the 50s & tachycardic. Dr. Crook notified. Specimens for sputum, trach site, and urine sent this AM for culture. at bedside this AM, answered all questions. Will continue to assess pt needs throughout shift.
[2021-04-02 10:50] VITALS: BP 130/88
[2021-04-02 10:50] LABS: URINE BILIRUBIN NEGATIVE (Negative); URINE BLOOD 1+ (Negative); URINE CLARITY CLOUDY; URINE COLOR YELLOW; URINE GLUCOSE-RANDOM* NEGATIVE (Negative); URINE KETONES NEGATIVE (Negative); URINE LEUKOCYTES-REFLEX NEGATIVE (Negative); URINE NITRITE-REFLEX NEGATIVE (Negative); URINE PROTEIN (DIPSTICK) TRACE (Negative); URINE UROBILINOGEN 0.2 E.U./dl (0.2-1.0)
[2021-04-02 11:20] LABS: ALBUMIN 1.6 g/dL (3.4-5.0); CALCIUM 7.4 mg/dL (8.5-10.1); CREATININE 0.7 mg/dL (0.7-1.3); POTASSIUM 3.1 mmol/L (3.5-5.1); TOTAL BILIRUBIN 0.6 mg/dL (0.2-1.0); TOTAL PROTEIN 5.5 g/dL (6.4-8.2)
[2021-04-02 11:31] LABS: CASTS None Seen /LPF (None Seen); SQUAMOUS None Seen /LPF (0-3)
[2021-04-02 11:32] LABS: AMORPHOUS URATES Moderate /LPF (None Seen); URINE RBC 1-2 Rare /HPF (NONE SEEN)
[2021-04-02 11:43] LABS: BACTERIA-REFLEX 1-9 Few /HPF (None Seen); URINE WBC-REFLEX 0-5 Rare /HPF (0-5)
[2021-04-02 13:40] LABS: BE(vivo) 4.8 mmol/L (-2 to +3); HCO3 29.5 mmol/L (22.0-26.0); PCO2 44.3 mmHg (35.0-45.0); pH 7.441 (7.360-7.450); sO2 98.9 % (92.0-98.0)
--- NOTE | 2021-04-02 14:34 | NUR ---
Case discussed with the care team. Pt now on CCU with vent/trach/peg care. Therapy is working with him. SIDEROGRAPHIST this am. here this am and mom here this afternoon. Pt [place] therefore unable to send LTAC referrals. KIMBERLEY spoke with Criselda at [place] to see if they are taking referrals on medicaid pending covid cases. She report that their sil office said no but requested a facesheet be faxed and they can run benefits to see if [place] med[place] as a pending case number and potential approval date. Pt with fever today. Out of covid ISO. Will follow.
[2021-04-02 15:10] VITALS: BP 119/80
[2021-04-02 20:00] VITALS: BP 136/98
[2021-04-03] VITALS (69 sets, daily range): BP systolic 68–160; BP diastolic 31–102
[2021-04-03 07:33] LABS: ABSOLUTE NEUTROPHILS 14.1 thou/uL (1.4-8.2); BASOPHILS 0.1 % (0.0-2.0); HEMATOCRIT 29.3 % (42.0-52.0); HEMOGLOBIN 9.7 gm/dL (14.0-18.0); LYMPHOCYTES 2.7 % (24.0-44.0); MCH 29.8 pg (26.0-34.0); MCV 90.4 fL (80.0-100.0); MONOCYTES 6.8 % (1.0-8.0); PLATELET COUNT 312 thou/uL (150-400); POLYS 90.4 % (36.0-66.0); RBC 3.24 mil/uL (4.50-6.00); RDW 14.5 % (10.5-14.5); WBC 15.6 thou/uL (4.0-11.0)
--- NOTE | 2021-04-03 07:36 | NUR ---
AFEBRILE.TACHYPNEIC.LARGE BM THIS SHIFT.DILAUDID GIVEN AND PT SLEPT.CALLED FAMILY AND GAVE UPDATES.MONITOR SHOWS ST.POC CONTINUED.
[2021-04-03 07:48] LABS: ALBUMIN 1.8 g/dL (3.4-5.0); CALCIUM 8.2 mg/dL (8.5-10.1); CREATININE 0.8 mg/dL (0.7-1.3); TOTAL BILIRUBIN 0.5 mg/dL (0.2-1.0); TOTAL PROTEIN 6.2 g/dL (6.4-8.2)
[2021-04-03 10:29] LABS: URINE BILIRUBIN NEGATIVE (Negative); URINE BLOOD 1+ (Negative); URINE CLARITY CLOUDY; URINE COLOR YELLOW; URINE GLUCOSE-RANDOM* NEGATIVE (Negative); URINE KETONES NEGATIVE (Negative); URINE LEUKOCYTES-REFLEX NEGATIVE (Negative); URINE NITRITE-REFLEX NEGATIVE (Negative); URINE PROTEIN (DIPSTICK) TRACE (Negative); URINE UROBILINOGEN 0.2 E.U./dl (0.2-1.0)
[2021-04-03 11:02] LABS: SQUAMOUS 0-3 Few /LPF (0-3)
[2021-04-03 11:03] LABS: BACTERIA-REFLEX 1-9 Few /HPF (None Seen); CASTS None Seen /LPF (None Seen); URINE RBC 1-2 Rare /HPF (NONE SEEN); URINE WBC-REFLEX 0-5 Rare /HPF (0-5)
[2021-04-03 11:04] LABS: AMORPHOUS URATES Moderate /LPF (None Seen)
--- NOTE | 2021-04-03 12:21 | NUR ---
1150HRS = PT ARRIVED TO ICU RM#[id number] ESCORTED BY RNX2, MEDICAL RECRUITER, AND PHARMCIST. EKG REPORTED A-FIB RVR, MONITOR APPEARED SVT. REPORTED TO DR. MICHELLE. AND AT BEDSIDE. PIV STARTED TO L FA, CARDIZM STARTED, CARDIOLOGY CONSULTED AND IMFORMED. PRECEDEX STARTED @ 0.4 AND TITRATED TO 1.4MCG/KG/HR. LORAZEPAM 2MG ADMINISTERED AND FENTANYL 100MCG ADMINISTERED IV PUSH. PT IS DIAPHORETIC AND APPEARS SOB AND SHOWING COMFORT AT SITTING UP POSITION.
--- NOTE | 2021-04-03 13:44 | EKG ---
[place] [address] [facility] [employer] [place] [address] ELECTROCARDIOGRAM REPORT Name: ROSALINORORO MoraKayley CALDERON Room #: 236-P ADM IN M.R.#: [id number] Admission: 03/07/21 Attend Phys: Nelson Diana MD Discharge: Date of : 72 Report #: [id number] [facility] Test Date: 2021-04-03 Test Time: 11:43:18 Pat Name: BELLA HOLM Department: Room: 236 Gender: M Hr Business Partner Consultant: DUANE : 1970 Requested By: Jose Angel Shell Order Number: [id number] MD: Marquis Benton Measurements Intervals [place] Rate: 197 P: FL: QRS: 62 QRSD: 78 T: -21 QT: 263 QTc: 476 Interpretive Statements Atrial fibrillation with rapid V-rate Ventricular premature complex Probable LVH with secondary repol abnrm Compared to ECG 03/11/2021 18:55:20 Ventricular premature complex(es) now present Sinus bradycardia no longer present T-wave abnormality no longer present ST (T wave) deviation no longer present Electronically Signed On 04-03-2021 13:44:24 CDT by Marquis Benton [email or web address] <ELECTRONICALLY SIGNED> By: Marquis Benton MD, [facility] 04/03/21 1344 1143 1143 Marquis Benton MD, [facility] /EPI
[2021-04-03 15:54] LABS: BE(vivo) 4.9 mmol/L (-2 to +3); HCO3 29.8 mmol/L (22.0-26.0); PCO2 45.7 mmHg (35.0-45.0); PO2 126.2 mmHg (80.0-100.0); pH 7.432 (7.360-7.450); sO2 98.6 % (92.0-98.0)
[2021-04-03 16:02] LABS: CALCIUM 7.4 mg/dL (8.5-10.1); CREATININE 0.7 mg/dL (0.7-1.3); POTASSIUM 3.9 mmol/L (3.5-5.1)
--- NOTE | 2021-04-03 16:19 | NUR ---
Pt TRANSFERRED TO ICU D/T NEED FOR HIGHER LEVEL OF CARE. HR 180s AND RR 50s UPON TRANSFER. WILL NEED NEW PT ORDER FOR Pt IN ORDER TO RESUME PT INTERVENTIONS WHEN Pt IS MEDICALLY STABLE.
[2021-04-03 16:37] LABS: APTT 29.1 Seconds (24.5-32.8); D-DIMER 4.39 ug/mLFEU (0.19-0.50); INR 1.21; PROTIME 13.1 Seconds (10.5-12.1)
--- NOTE | 2021-04-03 19:00 | NUR ---
Assumed care of this pt at 1900. He is seems to be in respiratory distress. RR in 50's while on vent. Drowsy but arousbale. Able to nod head" yes" for pain questiosn when I assessed. O2 sat 89-90% noted, A-fib with RVR rates 130's to 140's. BP stable. Will titirate sedative up for his vent management/ HR control.
--- NOTE | 2021-04-03 19:49 | NUR ---
Pt respiratory rates has improved, but remains tachypnic despite max out of sedation. HR has improved. Plan for CT scan of Chest/Head tonight.
[2021-04-04] VITALS (80 sets, daily range): BP systolic 82–127; BP diastolic 51–81
[2021-04-04 04:28] LABS: BE(vivo) 3.4 mmol/L (-2 to +3); PCO2 49.2 mmHg (35.0-45.0); PO2 85.6 mmHg (80.0-100.0); pH 7.388 (7.360-7.450); sO2 96.3 % (92.0-98.0)
[2021-04-04 05:03] LABS: HEMATOCRIT 25.4 % (42.0-52.0); HEMOGLOBIN 8.5 gm/dL (14.0-18.0); MCH 30.9 pg (26.0-34.0); MCHC 33.4 g/dL (28.0-37.0); MCV 92.3 fL (80.0-100.0); RBC 2.75 mil/uL (4.50-6.00); RDW 14.8 % (10.5-14.5); WBC 14.5 thou/uL (4.0-11.0)
[2021-04-04 05:14] LABS: CALCIUM 8.4 mg/dL (8.5-10.1); CREATININE 0.9 mg/dL (0.7-1.3); POTASSIUM 4.3 mmol/L (3.5-5.1)
--- NOTE | 2021-04-04 06:00 | NUR ---
Pt slightly hypotensive after requceived seroquel am dose. He appears to be heavily sedated, will titrate sedative down base on his BP and behaviors.
--- NOTE | 2021-04-04 07:47 | NUR ---
Updates pt's family regarding of pt's current condtions this am per daniel requested.
--- NOTE | 2021-04-04 08:43 | NUR ---
Pt sat up in bed nodded yes when asked if he felt hot. Blankets removed, fan turned on. Cardiology at bedside, ordered dose of digoxin. Dilauded restarted, cardizem restarted. Pt now resting comfortably but with sustained HR in the 150's.
--- NOTE | 2021-04-04 11:36 | NUR ---
Spoke with pt father, answered questions about overall status and potential longevity of illness. Father asked how long he would be in ICU, RN informed him there was no way to know for sure as COVID is ever evolving.
--- NOTE | 2021-04-04 14:16 | 2DMMODE ---
[facility] [place] [address] 2 D/M-MODE ECHOCARDIOGRAM Name: BELLA HOLM Room #: 236-P ADM IN M.R.#: [id number] Admission: 03/07/21 Attend Phys: Nelson Diana MD Discharge: Date of : 72 Report #: [id number] THIS REPORT FOR: cc: FAM - No family physician/PCP FAM - No family physician/PCP Sylvain Martin MD ~ APPROVED REPORT Study performed: 04/04/2021 08:32:25 EXAM: Comprehensive 2D, Doppler, and color-flow Echocardiogram Patient Location: In-Patient Room #: 236 Status: routine BSA: 2.00 HR: 80 bpm BP: 90/59 mmHg Rhythm: Atrial Fibrillation Other Information Study Quality: Good Indications Atrial Fibrillation Covid Pneumonia 2D Dimensions RVDd: 39.25 mm IVSd: 11.87 (7-11mm) LVOT Diam: 22.03 (18-24mm) LVDd: 49.45 mm PWd: 11.90 (7-11mm) Ascending Ao: 28.59 (22-36mm) LVDs: 31.49 (25-40mm) Left Atrium: 37.76 (27-40mm) Aortic Root: 33.60 mm Volumes Left Atrial Volume (Systole) Single Plane 4CH: 37.38 mL Single Plane 2CH: 23.22 mL Biplane LA Volume: 36.00 mL LA ESV Index: 18.00 mL/m2 Aortic Valve AoV Peak Adrian.: 1.53 m/s AO Peak Gr.: 11.08 mmHg LVOT Max P.39 mmHg LVOT Max V: 1.16 m/s [facility] [address] [place] [address] 2 D/M-MODE ECHOCARDIOGRAM Name: BELLA HOLM Room #: 236[facility]#: [id number] Admission: 03/07/21 Attend Phys: Nelson Diana MD Discharge: Date of : 72 Report #: [id number] LAURO Vmax: 2.87 cm2 Pulmonary Valve PV Peak Adrian.: 0.87 m/s PV Peak Gr.: 3.00 mmHg Tricuspid Valve TR Peak Adrian.: 3.63 m/s RAP Estimate: 10.00 mmHg TR Peak Gr.: 52.65 mmHg RVSP: 62.00 mmHg Left Ventricle The left ventricle is normal size. There is normal LV segmental wall motion. Mild concentric left ventricular hypertrophy. Left ventricular systolic function is normal. The left ventricular ejection fraction is within the normal range. LVEF is 55-60%. This study is not technically sufficient to allow evaluation of the LV diastolic function due to atrial fibrillation. Right Ventricle The right ventricle is normal size. The right ventricular systolic function is normal. Atria The left atrium size is normal. The right atrium size is normal. Aortic Valve The aortic valve is normal in structure. No aortic regurgitation is present. There is no aortic valvular stenosis. Mitral Valve The mitral valve is normal in structure. Mild to moderate mitral regurgitation. No evidence of mitral valve stenosis. Tricuspid Valve The tricuspid valve is normal in structure. Mild to moderate tricuspid regurgitation. PAP 65 mmHg. Pulmonic Valve The pulmonary valve is normal in structure. There is no pulmonic valvular regurgitation. Great Vessels The aortic root is normal in size. IVC is normal in size and collapses <50% with inspiration. Pericardium [facility] [address] [place] [address] 2 D/M-MODE ECHOCARDIOGRAM Name: BELLA HOLM Room #: 236-P ADM IN M.R.#: [id number] Admission: 03/07/21 Attend Phys: Nelson Diana MD Discharge: Date of : 72 Report #: [id number] There is no pericardial effusion. There is no pleural effusion. <Conclusion> The left ventricle is normal size. Mild concentric left ventricular hypertrophy. LVEF is 55-60%. The aortic valve is normal in structure. The mitral valve is normal in structure. Mild to moderate mitral regurgitation. The tricuspid valve is normal in structure. Mild to moderate tricuspid regurgitation. PAP 65 mmHg. The pulmonary valve is normal in structure. The aortic root is normal in size. There is no pericardial effusion. <ELECTRONICALLY SIGNED> By: Sylvain Martin MD 04/04/21 1416 141 1416 Sylvain Martin MD /INF
--- NOTE | 2021-04-04 15:53 | EKG ---
[address] [place] [address] ELECTROCARDIOGRAM REPORT Name: ROSALINORORO MoraKayley CALDERON Room #: 236-P ADM IN M.R.#: [id number] Admission: 03/07/21 Attend Phys: Nelson Diana MD Discharge: Date of : 72 Report #: [id number] [facility] Test Date: 2021-04-04 Test Time: 08:45:56 Pat Name: BELLA HOLM Department: Room: 236 P Gender: M Open Tenter Operator: thompson : 1970 Requested By: Dian Berrios Order Number: [id number] : Marquis Benton Measurements Intervals [place] Rate: 147 P: DE: QRS: 61 QRSD: 79 T: -34 QT: 292 QTc: 457 Interpretive Statements Atrial fibrillation Consider left ventricular hypertrophy Nonspecific T abnormalities, diffuse leads Compared to ECG 04/03/2021 11:43:18 T-wave abnormality now present Ventricular premature complex(es) no longer present Electronically Signed On 04-04-2021 15:53:04 CDT by Marquis Benton [email or web address] <ELECTRONICALLY SIGNED> By: Maqruis Benton MD, [facility] 04/04/21 1553 0845 0845 Marquis Benton MD, [facility] /EPI
--- NOTE | 2021-04-04 17:33 | NUR ---
Samantha arrived at bedside, quietly sitting with pt. VSS, HR 80 afib, O2 97%.
[2021-04-04 19:35] LABS: HEMATOCRIT 27.5 % (42.0-52.0); HEMOGLOBIN 9.2 gm/dL (14.0-18.0); MCHC 33.5 g/dL (28.0-37.0); MCV 92.6 fL (80.0-100.0); RBC 2.97 mil/uL (4.50-6.00); RDW 14.7 % (10.5-14.5); WBC 14.9 thou/uL (4.0-11.0)
[2021-04-04 19:41] LABS: CALCIUM 8.2 mg/dL (8.5-10.1); POTASSIUM 4.7 mmol/L (3.5-5.1)
[2021-04-04 19:47] LABS: ALBUMIN 1.6 g/dL (3.4-5.0); TOTAL BILIRUBIN 0.3 mg/dL (0.2-1.0); TOTAL PROTEIN 5.5 g/dL (6.4-8.2)
--- NOTE | 2021-04-04 21:14 | NUR ---
PARENTS CALLED THIS RN AT 2100. UPDATE GIVEN, ALL QUESTIONS ANSWERED. ORDERS OBTAINED FROM DR MICHELLE FOR NEW LABS AND CVP MONITORING. PATIENT BECOMES EXTREMELY TACHYPNIC, TACHYCARDIC, RESTLESS WITH ANY STIMULATION. NOT PROGRESSING TOWARDS POC GOALS.
[2021-04-05] VITALS (43 sets, daily range): BP systolic 87–142; BP diastolic 53–90
[2021-04-05 05:26] LABS: HEMATOCRIT 26.6 % (42.0-52.0); HEMOGLOBIN 8.5 gm/dL (14.0-18.0); MCH 29.8 pg (26.0-34.0); MCHC 32.1 g/dL (28.0-37.0); MCV 92.7 fL (80.0-100.0); RBC 2.87 mil/uL (4.50-6.00); RDW 14.4 % (10.5-14.5); WBC 17.3 thou/uL (4.0-11.0)
[2021-04-05 05:47] LABS: CALCIUM 8.2 mg/dL (8.5-10.1); CREATININE 0.8 mg/dL (0.7-1.3); POTASSIUM 4.9 mmol/L (3.5-5.1)
[2021-04-05 13:14] LABS: BE(vivo) 3.6 mmol/L (-2 to +3); HCO3 29.6 mmol/L (22.0-26.0); PCO2 50.8 mmHg (35.0-45.0); pH 7.383 (7.360-7.450); sO2 86.8 % (92.0-98.0)
[2021-04-05 13:15] LABS: PO2 53.4 mmHg (80.0-100.0)
--- NOTE | 2021-04-05 14:50 | NUR ---
Chart review. Discussed during los with hospitalist and unit rounds with pulmonary md. trach and peg. Will need vent weaning when able? Out of Covid isolation. On IV gtts. Will cont. following as needed. No anticipated dc over the weekend.
--- NOTE | 2021-04-05 18:30 | NUR ---
PATIENT STARTED ON HEPARIN GTT TODAY. PATIENT CONTINUES IN PLAN OF CARE. PROGRESSING. FAMILY TO SEE PATIENT TODAY. APRV MODE ON VENTILATOR. 40% FIO2.
--- NOTE | 2021-04-05 22:44 | NUR ---
This RN spoke to Anabelle Roth, father, at 1999. Discussed patient status and plan of care.
[2021-04-06] VITALS (30 sets, daily range): BP systolic 108–202; BP diastolic 71–121
[2021-04-06 05:21] LABS: HEMATOCRIT 27.4 % (42.0-52.0); HEMOGLOBIN 9.2 gm/dL (14.0-18.0); MCH 30.9 pg (26.0-34.0); MCHC 33.6 g/dL (28.0-37.0); MCV 91.9 fL (80.0-100.0); RBC 2.99 mil/uL (4.50-6.00); RDW 14.4 % (10.5-14.5); WBC 20.8 thou/uL (4.0-11.0)
[2021-04-06 05:29] LABS: CALCIUM 8.6 mg/dL (8.5-10.1); CREATININE 0.8 mg/dL (0.7-1.3)
--- NOTE | 2021-04-06 10:11 | NUR ---
PATIENT'S MOTHER, DERECK AND FATHER, JUANY CALLED FROM [phone]. THEY WERE UPDATED AND EDUCATED ON THE PATIENT'S CONDITIONS AND PLAN OF CARE.
--- NOTE | 2021-04-06 15:27 | NUR ---
PATIENT'S , REGISGADIEL TIMED THE PATIENT FROM 1148 - 1200.
--- NOTE | 2021-04-06 20:10 | NUR ---
PT IS SLOWLY PROGRESSING TOWARDS THE PLAN OF CARE EVIDENCED BY NO NEW INCREASE O2 DEMAND, HOWEVER, REQUIRING MORE SEDATION TO MAINTAIN NORMAL RESPITORY RATE
[2021-04-07] VITALS (91 sets, daily range): BP systolic 81–192; BP diastolic 52–111
[2021-04-07 02:41] LABS: HEMATOCRIT 31.3 % (42.0-52.0); HEMOGLOBIN 10.6 gm/dL (14.0-18.0); MCH 30.4 pg (26.0-34.0); MCHC 33.7 g/dL (28.0-37.0); MCV 90.1 fL (80.0-100.0); RBC 3.48 mil/uL (4.50-6.00); RDW 13.8 % (10.5-14.5); WBC 23.2 thou/uL (4.0-11.0)
[2021-04-07 02:56] LABS: CALCIUM 8.5 mg/dL (8.5-10.1); POTASSIUM 4.2 mmol/L (3.5-5.1)
--- NOTE | 2021-04-07 06:08 | NUR ---
PT'S MOM AND CALLED TO CHECK STATUS OF PT. PT WAS TRANSFERRED TO ROOM 248 AT SHIFT CHANGE. SR-ST PER MONITOR. VENEGAS PATENT WITH ADEQUATE AMOUNTS OF UO. NO STOOL. PT LIGHTLY SEDATED, ABLE TO FOLLOW COMMANDS IS COMPLIANT WITH CARE. COPIOUS AMTS OF CREAMY SECRETIONS PER TRACH, SCANTS AMTS OF THICK, CREAMY SECRETIONS ORALLY. PT WAS FEBRILE WITH MAX TEMP OF 100.2, TYLENOL GIVEN WITH DECREASE IN TEMPT TO 98.9. ATIVAN GIVEN FOR RESTLESSNESS/ANXIETY. PRN BP MEDS GIVEN WITH SCHEDULED BP MEDS. BP WAX AND WANE THROUGH OUT THE NIGHT. RR 30-22. RIGHT UA TL PICC PATENT AND INTACT. SLOW PROGRESS TOWARDS DC GOALS. WILL CONTINUE TO MONITOR.
--- NOTE | 2021-04-07 15:49 | NUR ---
PT RESTING COMFORTABLY. FSC. TRACH IN PLACE WITH COPIOUS SECREATIONS. VERSED/PRECEDEX/DILAUDID GTT FOR VENT MANAGEMENT. PT AFEBRILE, POLYUREA, NO BM, TOLERATING TUBE FEEDS AT GOAL, PICC LINE FUNCTIONING WELL. TUBE FEED RESIDUALS ARE INCREASING, PROVIDER AWARE AND NEW ORDERS GIVEN. PT AND FAMILY HAVE BEEN THOUROUGHLY UPDATED AND EDUCATED ON PT CONDITION AND POC. PT SLOWLY PROGRESSING TOWARDS POC.
[2021-04-08] VITALS (42 sets, daily range): BP systolic 86–146; BP diastolic 55–102
[2021-04-08 05:30] LABS: HEMATOCRIT 30.6 % (42.0-52.0); HEMOGLOBIN 10.4 gm/dL (14.0-18.0); MCH 30.7 pg (26.0-34.0); MCHC 33.9 g/dL (28.0-37.0); MCV 90.3 fL (80.0-100.0); RBC 3.39 mil/uL (4.50-6.00); RDW 14.6 % (10.5-14.5)
[2021-04-08 05:48] LABS: CALCIUM 8.7 mg/dL (8.5-10.1); CREATININE 0.7 mg/dL (0.7-1.3); POTASSIUM 4.1 mmol/L (3.5-5.1)
[2021-04-09] VITALS (19 sets, daily range): BP systolic 81–132; BP diastolic 49–84
[2021-04-09 04:17] LABS: BE(vivo) 9.3 mmol/L (-2 to +3); HCO3 35.6 mmol/L (22.0-26.0); PCO2 56.5 mmHg (35.0-45.0); PO2 83.3 mmHg (80.0-100.0); pH 7.417 (7.360-7.450); sO2 96.1 % (92.0-98.0)
[2021-04-09 05:39] LABS: HEMOGLOBIN 10.1 gm/dL (14.0-18.0); MCH 30.4 pg (26.0-34.0); MCHC 33.6 g/dL (28.0-37.0); MCV 90.2 fL (80.0-100.0); PLATELET COUNT 489 thou/uL (150-400); RBC 3.33 mil/uL (4.50-6.00); RDW 15.1 % (10.5-14.5); WBC 15.3 thou/uL (4.0-11.0)
--- NOTE | 2021-04-09 06:00 | NUR ---
REMAINS INTUBATED AND SEDATED. TRACH INTACT WITH LARGE AMT OF SECRETIONS LUNGS COARSE. 2800 CC UO THIS SHIFT. REMAINS IN SINUS RHYTHM. SLOWLY PROGRESSING TOWARD GOALS
[2021-04-09 06:22] LABS: CALCIUM 8.6 mg/dL (8.5-10.1); CREATININE 0.7 mg/dL (0.7-1.3); POTASSIUM 4.7 mmol/L (3.5-5.1); TOTAL BILIRUBIN 0.5 mg/dL (0.2-1.0); TOTAL PROTEIN 5.9 g/dL (6.4-8.2)
[2021-04-09 07:00] LABS: ABSOLUTE NEUTROPHILS 12.4 thou/uL (1.4-8.2); PLATELET ESTIMATE NORMAL
[2021-04-10] VITALS (21 sets, daily range): BP systolic 83–138; BP diastolic 51–95
--- NOTE | 2021-04-10 06:00 | NUR ---
VSS REMAINS INTUBATED AND SEDATED WITH PRECEDEX VERSED AND DIALUDID GTTS BECOMES VERY AGITATED AT TIMES. SITS UP IN BED. SUCTIONED FOR A LG AMT BEIGE SPUTUM VIA TRACH. 1400 CC UO THIS SHIFT. SLOWLY PROGRESSING TOWARD GOALS.
[2021-04-10 06:02] LABS: HEMATOCRIT 32.2 % (42.0-52.0); HEMOGLOBIN 10.6 gm/dL (14.0-18.0); MCH 29.7 pg (26.0-34.0); MCHC 32.9 g/dL (28.0-37.0); MCV 90.4 fL (80.0-100.0); RBC 3.56 mil/uL (4.50-6.00); RDW 15.2 % (10.5-14.5); WBC 14.8 thou/uL (4.0-11.0)
[2021-04-10 06:23] LABS: CALCIUM 8.6 mg/dL (8.5-10.1); CREATININE 0.7 mg/dL (0.7-1.3); POTASSIUM 4.5 mmol/L (3.5-5.1)
--- NOTE | 2021-04-10 12:15 | NUR ---
SPOKE TO PT'S AT 1215 AND UPDATED HER PER POC
--- NOTE | 2021-04-10 16:12 | NUR ---
Discussed during los with hospitalist and unit rounds. Trach/peg, cont. vent weaning. Out of covid isolation. Noted resting with eyes closed. Will cont. following as needed for dc needs. Parents and cont. to be updated by bedside nurse and visit as well.
[2021-04-11] VITALS (48 sets, daily range): BP systolic 82–135; BP diastolic 50–93
--- NOTE | 2021-04-11 00:10 | NUR ---
Pt became very anxious and restless. Almost pull out his trach by accident. Unable to calm him down. Max out on precedex and versed gtt at this time. He isn't aware of any situation. Place wrist restraint on him at this time. Notified Hiram Gonzalez NP; see new order.
[2021-04-11 05:21] LABS: HEMATOCRIT 30.6 % (42.0-52.0); HEMOGLOBIN 10.1 gm/dL (14.0-18.0); MCH 30.3 pg (26.0-34.0); MCV 91.6 fL (80.0-100.0); PLATELET COUNT 510 thou/uL (150-400); RBC 3.34 mil/uL (4.50-6.00); RDW 15.2 % (10.5-14.5); WBC 14.7 thou/uL (4.0-11.0)
[2021-04-11 05:35] LABS: ALBUMIN 2.1 g/dL (3.4-5.0); CALCIUM 8.4 mg/dL (8.5-10.1); CREATININE 0.7 mg/dL (0.7-1.3); TOTAL BILIRUBIN 0.5 mg/dL (0.2-1.0)
[2021-04-11 06:51] LABS: ABSOLUTE NEUTROPHILS 12.3 thou/uL (1.4-8.2); ANISOCYTOSIS 1+; METAMYELOCYTES 2 %
--- NOTE | 2021-04-11 07:00 | NUR ---
Multiple attempted to come down on sedation w/o any success. He became very restless. Gave prn Seroquel x 1 with good result. Not making any progress in this shift.
--- NOTE | 2021-04-11 08:15 | NUR ---
Spoke with Pt's mother this am regarding of place him back on restraint. Updates Pt's mother regarding of current conditions.
--- NOTE | 2021-04-11 08:30 | NUR ---
Harriet and versed turned off at [address] Kendall at bedside.
--- NOTE | 2021-04-11 09:00 | NUR ---
Chart review, discussed during unite rounds. Trach with vent support, peg for nutritional support. Noted at bedside making a visit. [place] been off of covid isolation. Will cont following as needed for dc needs.
[2021-04-11 09:01] LABS: BE(vivo) 7.6 mmol/L (-2 to +3); HCO3 32.5 mmol/L (22.0-26.0); PCO2 47.2 mmHg (35.0-45.0); pH 7.456 (7.360-7.450); sO2 97.7 % (92.0-98.0)
--- NOTE | 2021-04-11 19:15 | NUR ---
Patient did very well today. Was able to stay off of versed and dilaudid, starting at 0800. Patient was able to be redirected when he became anxious. PRN medications helped as well. Patient's Samantha and his mother both visited today, all of their questions and concerns were addressed. Stable vital signs throughout my shift. Patient progressing towards goal
[2021-04-12] VITALS (42 sets, daily range): BP systolic 91–140; BP diastolic 60–107
--- NOTE | 2021-04-12 15:35 | NUR ---
ASSUMED CARE OF PT AT 0700. , MOTHER, AND FATHER AT BEDSIDE THROUGHOUT THE DAY. ANSWERED QUESTIONS AND EXPALINED CARES GIVEN.
[2021-04-13] VITALS (31 sets, daily range): BP systolic 105–153; BP diastolic 67–123
--- NOTE | 2021-04-13 15:11 | NUR ---
ASSUMMED CARE OF THIS PATIENT FROM THE NIGHT NURSE, MANDEEP AMARAL. PRECEDEX TAPPERED DOWN PATIENT IS LESS AGITATED AFTER GIVEN DILAUDID. RESP RATE IN THE 30'S AT TIMES. MONITOR SR TO ST. WILL CONTINUE TO MONITOR. PLEASE REFER TO ASSESSMENT COMMENTS. AND PARENTS IN TO VISIT AND UPDATED ON THE PATIENT'S STATUS AND POC. QUESTIONS ADDRESSED AND REASSURANCE GIVEN.
--- NOTE | 2021-04-13 15:32 | NUR ---
Per attending in AM review of case: Continue to monitor. Pulmonology review notes resting comfortably as trach remains dry and patient following commands. Full ICU support continues with FI02 at 30% and peep of 5. Mother Jessa Guerrero and Father Anabelle at [phone] along with spouse Samantha Guerrero at [phone] remain as points of contact. Noted patient living with spouse and working prior to hospitalization. Needs at discharge have not yet been identified as acuity of care and MD interventions continue. CM will follow per MD direction as needed.
--- NOTE | 2021-04-13 19:54 | NUR ---
PATIENT IS PROGRESSING SLOWLY TOWARDS OUTCOME GOALS. PRECEDEX WEANED OFF.
[2021-04-14] VITALS (47 sets, daily range): BP systolic 110–155; BP diastolic 66–103
--- NOTE | 2021-04-14 17:20 | NUR ---
At [address] Kendall that patients HR is increasing 115-120, as well as respirator rate. replied and stated to increase pressure support. Current ventilator setting PS rate 20 Pinsp 15 FiO2 30% and peep of 5.I will continue to monitor
--- NOTE | 2021-04-14 18:30 | NUR ---
Patient is slowly progressing towards goal. Requiring less PRN medication for agitation. and parents came in to visit today, all questions and concerns were addressed.
[2021-04-15] VITALS (48 sets, daily range): BP systolic 108–161; BP diastolic 60–100
[2021-04-15 06:18] LABS: HEMATOCRIT 32.7 % (42.0-52.0); HEMOGLOBIN 10.8 gm/dL (14.0-18.0); MCH 29.7 pg (26.0-34.0); MCHC 33.1 g/dL (28.0-37.0); MCV 89.7 fL (80.0-100.0); PLATELET COUNT 492 thou/uL (150-400); RBC 3.65 mil/uL (4.50-6.00); RDW 15.3 % (10.5-14.5)
[2021-04-15 06:33] LABS: ALBUMIN 2.4 g/dL (3.4-5.0); CALCIUM 8.9 mg/dL (8.5-10.1); CREATININE 0.8 mg/dL (0.7-1.3); POTASSIUM 3.9 mmol/L (3.5-5.1); TOTAL BILIRUBIN 0.6 mg/dL (0.2-1.0); TOTAL PROTEIN 6.4 g/dL (6.4-8.2)
[2021-04-15 12:39] LABS: ABSOLUTE NEUTROPHILS 14.2 thou/uL (1.4-8.2); METAMYELOCYTES 3 %; MYELOCYTES 1 %
[2021-04-15 12:40] LABS: ANISOCYTOSIS SLIGHT
--- NOTE | 2021-04-15 13:05 | NUR ---
PT FAMILY MEMBER, MOTHER, AT BEDISIDE WITH PATIENT. PT SATTING 94% ON 30% FIO2. WILL CONTINUE TO MONITOR.
[2021-04-16] VITALS (47 sets, daily range): BP systolic 111–153; BP diastolic 70–103
[2021-04-16 04:40] LABS: BE(vivo) 7.7 mmol/L (-2 to +3); HCO3 32.6 mmol/L (22.0-26.0); PCO2 46.2 mmHg (35.0-45.0); PO2 89.4 mmHg (80.0-100.0); pH 7.466 (7.360-7.450); sO2 97.2 % (92.0-98.0)
[2021-04-16 06:01] LABS: ABSOLUTE NEUTROPHILS 12.6 thou/uL (1.4-8.2); BASOPHILS 0.9 % (0.0-2.0); HEMATOCRIT 30.7 % (42.0-52.0); HEMOGLOBIN 10.3 gm/dL (14.0-18.0); LYMPHOCYTES 11.6 % (24.0-44.0); MCH 30.1 pg (26.0-34.0); MCHC 33.5 g/dL (28.0-37.0); MONOCYTES 9.1 % (1.0-8.0); PLATELET COUNT 473 thou/uL (150-400); POLYS 77.4 % (36.0-66.0); RBC 3.41 mil/uL (4.50-6.00); RDW 15.3 % (10.5-14.5); WBC 16.3 thou/uL (4.0-11.0)
[2021-04-16 06:12] LABS: ALBUMIN 2.4 g/dL (3.4-5.0); CALCIUM 8.6 mg/dL (8.5-10.1); CREATININE 0.8 mg/dL (0.7-1.3); POTASSIUM 4.1 mmol/L (3.5-5.1); TOTAL BILIRUBIN 0.5 mg/dL (0.2-1.0)
--- NOTE | 2021-04-16 09:46 | NUR ---
Samantha visiting patient this morning. She was updated on plan of care, current treatments, goals, and xrays results. Cardiology rounded and talked with them as well.
--- NOTE | 2021-04-16 16:13 | NUR ---
Discussed during los and unit rounds. Required vent support, has trach and peg for nutritional support. Cont wean trial if able and per MD. Out of COVID isolation. Noted he waved from his room. Was reported he will mouth word and restless at time. increased resp rate at. Will cont. following as needed for dc needs.
--- NOTE | 2021-04-16 19:00 | NUR ---
Patient progressing towards plan of care as evidenced by increasing strength working with PT/OT, decreasing ventilator demands/needs, decreasing restlessness. He does have periods of tearfulness, reassurance provided. He stood three times today with therapy.
--- NOTE | 2021-04-16 23:24 | NUR ---
UPON INITIAL ASSESSMENT, PT SLIGHTLY RESTLESS WITH RR 30S-40S. SPO2 STABLE. GIVEN PRN MORPHINE FOR AIR HUNGER. PT NOW SLEEPING CALMLY. RR NOW LOW 30S. WILL MONITOR FURTHER.
[2021-04-17] VITALS (26 sets, daily range): BP systolic 112–135; BP diastolic 71–93
--- NOTE | 2021-04-17 07:29 | NUR ---
NO SIGNFICANT EVENTS DURING THE NIGHT. PT SLEPT OFF AND ON. RR 30S-40S. PRN ATIVAN AND MORPHINE GIVEN INDICATED FOR RESTLESSNESS OR TACHYPNEA/AIR HUNGER. NO C/O PAIN. BOLUS TF VIA PEG TUBE. PT TOLERATING TF WELL. VENEGAS TO DD WITH GOOD URINE OUTPUT. FREQUENT ORAL CARE PROVIDED. PT HAS STRONG COUGH AND LARGE AMOUNT OF ORAL SECRETIONS. MODERATE TO LARGE AMOUNT OF TRACHEAL SECRETIONS WELL. FALL PRECAUTIONS IN PLACE. PROGRESSING TOWARD POC GOALS. REPORT GIVEN TO ONCOMING NURSE.
[2021-04-18] VITALS (13 sets, daily range): BP systolic 114–136; BP diastolic 73–89
--- NOTE | 2021-04-18 05:48 | NUR ---
NO ACUTE EVENTS WITH PT OVERNIGHT. PT REMAINS ON VENTILATOR. INTERMITTENT ANXIETY. PROGRESSING TOWARD GOAL.
--- NOTE | 2021-04-18 12:04 | NUR ---
SARS CoV 2 ARDS with COVID Pneumonia care continues. FI02 at 20 and Peep of 5. Per attending MD AM review: No change in care or condition. CM will follow for discharge needs once identified. Mother Jessa at [phone] and spouse Samantha at [phone] remain updated by CM, nursing and MDs at this time. CM will follow per MD interventions as plans of care progress
--- NOTE | 2021-04-18 14:00 | NUR ---
ASSUMED CARE OF PT AT 0700. FAMILY AT BEDSIDE AT 0930. ANSWERED QUESTIONS AND EXPLAINED ALL CARES GIVEN. DR. MICHELLE AT BEDSIDE AT 1115. GAVE ORDERS TO TRANSFER TO CCU.
--- NOTE | 2021-04-18 14:03 | NUR ---
PT TRANSFERRED TO CCU AT 1330. REPORT GIVEN TO OFFGOING NURSE. PT SENT WITH BELONGINGS; SHOES, SWEATSHIRT, PUZZLE, AND BLUE FOAM BALL.
--- NOTE | 2021-04-18 14:09 | NUR ---
CALLED PT TO UPDATE ABOUT PT TRANSFER.
--- NOTE | 2021-04-18 18:14 | NUR ---
PT TRANSFERED TO THE UNIT FROM THE ICU - ORIENTED TO ROOM AND BEDSPACE. PT REMIAN ON CPAP - SAT IN THE MID TO UPPER 90'S. RATE IN THE UPPER 20'S. FEEDING VIA PEG TUBE GIVEN WAITED 15 MIN BETWEEN GIVING FEED AND THEN WATER TO ATTEMPT TO DECREASE PT FEELING OF FULLNES. PT TURNED SELF IN BED. NO CO'S OF PAIN OR NAUSEA. FAMILY AT TH BEDSIDE. ASSESWSMENT CHARTED - MEDS PER OCT - NO CO'S AT THE PRESENT TIME.
[2021-04-19 00:04] VITALS: BP 106/75
--- NOTE | 2021-04-19 03:59 | NUR ---
RECEIVED THE PATIENT CONSCIOUS, FOLLOW COMMANDS.ON TRACHEOSTOMY CONNECTED TO CPAP AT30% FIO2, SATURATING WELL.WITH VENEGAS CATHTER INTACT.WITH PEG TUBE FOR FEEDING 5X A DAY.TOLERATED FEEDING VIA PEG.WITH PICC LINE INTACT.SUCTIONED SECRETIONS PRN.ALL NEEDS ATTENDED
[2021-04-19 04:47] VITALS: BP 108/70
[2021-04-19 08:04] VITALS: BP 114/85
--- NOTE | 2021-04-19 14:32 | NUR ---
DC planning efforts pending the pt's progress and medicaid approval. LTAC referrals on hold until Medicaid approval rec'd. Pt is now on CCU and out of ISO. Vent weaning/trach/peg care/therapy/ ivatb and iv lasix continue. and parents visit daily and check in with staff. 5N eval may be a consideration once pt is off the vent.
[2021-04-19 16:00] VITALS: BP 123/87
--- NOTE | 2021-04-19 18:30 | NUR ---
TOOK OVER PATIENT CARE AT 0700. PATIENT CURRENTLY ON TRACH-SHIELD. PATIENT TOLERATING WELL. PATIENT ALERT AND ORIENTATED; MOUTHS WORDS AND FOLLOWS COMMANDS. PATIENT HAS CONTINUOUS FEEDING AT 20 ML/HOUR WITH A GOAL RATE OF 40ML/HOUR WITH 50 CC FLUSH EVERY 4 HOURS. TRIED TO SPEAK TO PEANUT ROASTER TODAY BUT WAS UNABLE TO CONTACT. DR. MICHELLE WANTED TO CONSULT SPEECH TODAY TO TRIAL ORAL FEEDINGS. SPEECH TRIED ORAL FEEDING BUT PATIENT DID NOT TOLERATE WELL. SPEECH RECOMMENDED WE GIVE ICE CHIPS IF THE PATIENT ABLE TO TOLERATE WELL.
[2021-04-19 19:50] VITALS: BP 121/87
--- NOTE | 2021-04-20 04:06 | NUR ---
assumed pt care at 1900, alert and oriented mouths words and follow commands appropriately, sr on tele, denies pain or soa, remains on trach-shield, tolerating well, tf infusing, no residual noted, assessments as charted, meds given as per oct, tolerating ice chips, no needs at this time, will continue to monitor and follow poc
[2021-04-20 04:30] VITALS: BP 133/84
[2021-04-20 05:37] LABS: ALBUMIN 2.8 g/dL (3.4-5.0); CALCIUM 8.9 mg/dL (8.5-10.1); CREATININE 0.9 mg/dL (0.7-1.3); PHOSPHORUS 4.1 mg/dL (2.5-4.9); POTASSIUM 3.5 mmol/L (3.5-5.1)
[2021-04-20 07:31] VITALS: BP 134/85
--- NOTE | 2021-04-20 13:59 | NUR ---
Case discussed with the care team. Pt was able to tolerate trach shield with high flow o2 35%FIO@ last night (off vent). 5N consult requested and they are following along. They will reassess his respiratory needs early next week to determine when they can accept him to acute rehab. His medicaid application has been submitted and is currently pending. with questions about the status of his jenelle and if anything else is needed. Message left for [facility] to give her a f/u call to answer questions regarding his jenelle, the status and what to expect. Therapy is working with him.
[2021-04-20 20:31] VITALS: BP 132/87
[2021-04-21 03:32] VITALS: BP 118/69
--- NOTE | 2021-04-21 05:12 | NUR ---
ASSUMED PT CARE AT SHIFT CHANGE, ALERT AND ORIENTED, SR ON TELE, DENIES PAIN OR SOB, REMAINS ON TRACH SHIELD AT 35%, 02SATS STABLE IN THE UPPER 90S, GOOD COUGH, TF INFUSING AT 20, NO RESIDUAL, NO NEEDS AT THIS TIME, REHAB CONSULTED FOR DISCHARGE NEEDS, WILL CONTINUE TO MONITOR
[2021-04-21 05:54] LABS: ALBUMIN 3.1 g/dL (3.4-5.0); CALCIUM 9.1 mg/dL (8.5-10.1); TOTAL BILIRUBIN 0.8 mg/dL (0.2-1.0); TOTAL PROTEIN 6.9 g/dL (6.4-8.2)
[2021-04-21 07:57] VITALS: BP 128/92
[2021-04-21 11:17] VITALS: BP 130/81
[2021-04-21 16:05] VITALS: BP 112/70
--- NOTE | 2021-04-21 16:53 | NUR ---
OVERALL PT HAD A GOOD SHIFT. VENEGAS REMOVED MID DAY BY THE END OF THE SHIFT PT WAS ABLE TO URINATE 350ML. PT STATED HE DID NOT HAVE ANY DIFFICULTY WITH URINATION. PT REMAINED IN NORMAL SINUS THROUGHOUT SHIFT. PT STATES HE HAS BEEN NAUSEATED THAT INCRASES WITH PEG TUBE MED ADMINISTRATION. PT RECEIVED PRN ZOFRAN AND STATED AFTERWARDS THAT THE NAUSEA HAS DECREASED AND IS TOLERABLE.
[2021-04-21 20:34] VITALS: BP 126/90
--- NOTE | 2021-04-22 04:22 | NUR ---
PT ALERT AND ORIENTED, REMAINS ON TRACH SHIELD WITH FI02 OF 35%, TOLERATING WELL, TF AT 20ML/HR, ASSESSMENTS CHARTED, EXPRESSED CONCERNS WITH LEG WEAKNESS AND NOT BEING ABLE TO STAND, PTS PLAN IS TO GO TO REHAB ONCE STABLE ABLE, NO NEEDS AT THIS TIME, PROGRESSING WELL TOWARDS POC
[2021-04-22 05:34] VITALS: BP 115/78
[2021-04-22 06:54] LABS: ALBUMIN 3.1 g/dL (3.4-5.0); PHOSPHORUS 3.9 mg/dL (2.5-4.9); POTASSIUM 3.8 mmol/L (3.5-5.1)
[2021-04-22 07:48] VITALS: BP 130/90
[2021-04-22 12:31] VITALS: BP 124/83
[2021-04-22 16:19] VITALS: BP 117/72
[2021-04-22 21:40] VITALS: BP 142/83
--- NOTE | 2021-04-23 02:46 | NUR ---
ASSUMED PT CARE AT 1900, PT IS AWAKE, ALERT AND ORIENTED, DENIES PAIN OR SOB, REMAINS ON TRACH SHIELD O2SATS STABLE, SR/SB ON TELE, PT UP TO THE COMMODEX1 ASSIST, STILL VERY WEAK, TF INFUSING AT 20CC/HR, TOLERATING WELL, MEDS GIVEN PER OCT, NO ACUTE DISTRESS, 5N CONSULTED ON PT, WILL CONTINUE TO MONITOR PER POC
[2021-04-23 04:09] VITALS: BP 117/77
[2021-04-23 08:30] VITALS: BP 136/83
[2021-04-23] MEDS ORDERED: BACTRIM DS TAB1 EACH PO (09:01)
[2021-04-23] MEDS ORDERED: ENOXAPARIN40 MG/0.1 SUBQ (09:01)
[2021-04-23] MEDS ORDERED: IPRAT-ALBUT 0.5-3 ML INH (09:01)
[2021-04-23] MEDS ORDERED: SEROQUEL 25 MG25 M1 PER TUBE (09:02)
[2021-04-23] MEDS ORDERED: LOPRESSOR50 PO (09:02)
[2021-04-23] MEDS ORDERED: ACETAMINOPHEN325 M1 PO (09:02)
[2021-04-23] MEDS ORDERED: METOCLOPRA10 MG/101 PER TUBE (09:03)
[2021-04-23] MEDS ORDERED: PREDNISONE5 MG/5 ML PO (09:03)
[2021-04-23] MEDS ORDERED: CARDIZEM CD 18180 M3 PO (09:04)
[2021-04-23 12:40] VITALS: BP 120/71
[2021-04-23 13:49] VITALS: BP 120/71
--- NOTE | 2021-04-23 16:59 | NUR ---
ASSUMED CARE SHIFT CHANGE. VSS DENIES PAIN O2 SATS WNL ON TRACH SHIELD AT 35%. PT UP WITH OT/PT LUCILA FAIR. DENIES SOB. FAMILY AT BEDSIDE THROUGHOUT SHIFT. DC ORDERS TO REHAB. DISCUSSED WITH PT AND FAMILY. PT NOW ON 2L O2 NC LUCILA WELL. UOP ADEQUATE. TELE REMOVED. PT LEFT UNIT WITH ALL BELONGINGS.
--- NOTE | 2021-04-23 17:08 | NUR ---
Patient accepted to 5N with planned dc today.
[2021-05-03] MEDS ORDERED: LOPRESSOR50 PO (08:53)
== END 2021-04-23 16:30 | DRG 3 ==
LOC: ER 18:14 → EROBS 20:55 → 3W 21:55 → ICU 03-08 13:49 → 2N 03-31 00:10 → ICU 04-03 11:30 → 2N 04-18 13:20
PROVIDERS: Hospitalist; Internal Medicine; Internal Medicine Pulmonary Disease; Nurse Practitioner; Nurse Practitioner Family; Pediatrics; Specialist; Surgery; ADMIT Hospitalist; ATTEND Hospitalist
PROC: 5A0935A Assistance with Respiratory Ventilation, Less than 24 Consecutive Hours, High Flow/Velocity Cannula (ICD-10-PCS; principal; 2021-03-07)
PROC: 5A1955Z Respiratory Ventilation, Greater than 96 Consecutive Hours (ICD-10-PCS; 2021-03-08)
PROC: 0BH17EZ Insertion of Endotracheal Airway into Trachea, Via Natural or Artificial Opening (ICD-10-PCS; 2021-03-08)
PROC: XW033H5 Introduction of Tocilizumab into Peripheral Vein, Percutaneous Approach, New Technology Group 5 (ICD-10-PCS; 2021-03-08)
PROC: 5A0935A Assistance with Respiratory Ventilation, Less than 24 Consecutive Hours, High Flow/Velocity Cannula (ICD-10-PCS; 2021-03-08)
PROC: 02HV33Z Insertion of Infusion Device into Superior Vena Cava, Percutaneous Approach (ICD-10-PCS; 2021-03-08)
PROC: 5A09357 Assistance with Respiratory Ventilation, Less than 24 Consecutive Hours, Continuous Positive Airway Pressure (ICD-10-PCS; 2021-03-08)
PROC: XW033E5 Introduction of Remdesivir Anti-infective into Peripheral Vein, Percutaneous Approach, New Technology Group 5 (ICD-10-PCS; 2021-03-08)
PROC: 0B110F4 Bypass Trachea to Cutaneous with Tracheostomy Device, Open Approach (ICD-10-PCS; 2021-03-21)
PROC: 0DH63UZ Insertion of Feeding Device into Stomach, Percutaneous Approach (ICD-10-PCS; 2021-03-21)
PROC: 0W360ZZ Control Bleeding in Neck, Open Approach (ICD-10-PCS; 2021-03-22)
DX: U07.1 COVID-19 (principal); J80 Acute respiratory distress syndrome; J12.82 Pneumonia due to coronavirus disease 2019; E43 Unspecified severe protein-calorie malnutrition; J69.0 Pneumonitis due to inhalation of food and vomit; A41.89 Other specified sepsis; R65.20 Severe sepsis without septic shock; G93.41 Metabolic encephalopathy; J15.9 Unspecified bacterial pneumonia; G72.81 Critical illness myopathy; Z68.1 Body mass index [BMI] 19.9 or less, adult; D64.9 Anemia, unspecified; R58 Hemorrhage, not elsewhere classified; Y95 Nosocomial condition; Y83.8 Other surgical procedures as the cause of abnormal reaction of the patient, or of later complication, without mention of misadventure at the time of the procedure; I10 Essential (primary) hypertension; D72.810 Lymphocytopenia; R74.01 Elevation of levels of liver transaminase levels; E80.6 Other disorders of bilirubin metabolism; R00.1 Bradycardia, unspecified; K21.9 Gastro-esophageal reflux disease without esophagitis; I48.0 Paroxysmal atrial fibrillation; Z91.011 Allergy to milk products; Z79.899 Other long term (current) drug therapy; Y92.89 Other specified places as the place of occurrence of the external cause
CPT/HCPCS: 10078; 10081; 10203; 10879; 27000; 50101; 50386; 50403; 50455; 51751; 56525; 56760; 58574; 58585; 58922; 62110; 62900; 65020; 65040

== ENCOUNTER 2021-04-23 12:21 | Inpatient (IN) | payer OTHER ==
[~2021-04-23] VITALS: Ht 182.9 cm; Wt 69.3 kg
--- NOTE | ~2021-04-23 | PLAN ---
[facility] [address] REHAB UNIT PLAN OF CARE Name: BELLA HOLM Room #: 504-1 ADM IN M.R.#: [id number] Admission: 04/23/21 Attend Phys: Vargas Patricio MD Discharge: Date of : 72 Report #: [id number] THIS REPORT FOR: cc: JENNIFER - No family physician/PCP FAM - No family physician/PCP Vargas Patricio MD ~ DATE OF SERVICE: 04/25/2021 PROGRESS NOTE/OVERALL PLAN OF CARE The patient is seen back today in followup. He is in no distress. Temperature 36.4, pulse 88, respirations 20, blood pressure 129/82. He is alert, pleasant, in good spirits. He is on nasal prong O2, currently at 2 liters. No focal calf swelling. He is min assist with basic transfers and is ambulating min assist 250 feet with a front-wheeled walker. In Occupational Therapy, upper body dressing is supervision with lower body dressing min assist. In Speech Therapy, he is on mechanical soft diet with thin liquids. He has functional cognition. He has a trach in place with a speaker valve. Feeding tube site is intact. ASSESSMENT: 1. Critical illness myopathy. 2. Toxic encephalopathy. 3. Dysphagia, improved. 4. COVID-19 hypoxic respiratory failure with pneumonia, status post tracheostomy. 5. Sepsis secondary to the above. 6. Paroxysmal atrial fibrillation. 7. Protein calorie malnutrition, status post PEG. 8. Anemia. 9. Hypertension. PLAN: The overall plan of care is based on the pre-admit screen and information garnered from therapy assessments. 1. Estimated length of stay is around probably 14 days. 2. Medical prognosis is reasonably good. 3. Anticipated interventions includes the interdisciplinary acute inpatient rehabilitation program. 4. Anticipated functional outcomes would be for the patient to become modified independent with transfers, mobility and ADLs and to improve as far as swallowing issues as he is still on aspiration precautions. The goal is to be independent so he can return back to the home setting. 5. Discharge destination would be back home with his . 6. Expected therapy by discipline includes PT, OT and Speech, 1 hour per day, each 5 days a week throughout the duration of the acute inpatient rehabilitation stay. [address] [address] REHAB UNIT PLAN OF CARE Name: BELLA HOLM Room #: 504-1 ADM IN ..#: [id number] Admission: 04/23/21 Attend Phys: Vargas Patricio MD Discharge: Date of : 72 Report #: [id number] ADDENDUM: The patient's prognosis for significant practical improvement within a reasonable period of time appears good. Given the patient's complex medical condition and risk of further medical complication, rehabilitation services could not be safely provided at the lower level of care such as a senior care facility. By: 0703 09 Vargas Patricio MD /cherelle
[~2021-04-23 12:21] MED LIST changes: +ACETAMINOPHEN325 M1 PO; +BACTRIM DS TAB1 EACH PO; +CARDIZEM CD 18180 M3 PO; +ENOXAPARIN40 MG/0.1 SUBQ; +IPRAT-ALBUT 0.5-3 ML INH; +LOPRESSOR50 PO; +METOCLOPRA10 MG/101 PER TUBE; +PREDNISONE5 MG/5 ML PO; +SEROQUEL 25 MG25 M1 PER TUBE
[2021-04-23 18:48] VITALS: BP 129/77
--- NOTE | 2021-04-24 01:02 | NUR ---
ASSUMED CARE APPROX 1900 EVENING 04/23. PT ALERT AND ORIENTED X4 SITTING UP IN RECLINER AT CHANGE OF SHIFT. TRACH IN PLACE WITH RESP THERAPY PERFORMING TRACH CARE AT HS. 02 AT 2L PER N/C. PT DENIES ANY SHORTNESS OF BREATH. PEG TUBE IN PLACE WITH TUBE FEEDING RUNNING AT 20ML/HR THIS NIGHT. MEDS CRUSHED AND GIVEN PER PEG TUBE WITHOUT DIFFICULTY. PT VOIDING PER URINAL. DENIES COMPLAINTS. PT HAD VISITOR IN EVENING. PT APPEARS TO BE SLEEPING SOUNDLY. BED ALARM ON AND CALL LIGHT IN REACH. WILL CONTINUE TO MONITOR.
[2021-04-24 05:06] LABS: HEMATOCRIT 36.2 % (42.0-52.0); HEMOGLOBIN 11.9 gm/dL (14.0-18.0); MCH 29.3 pg (26.0-34.0); MCHC 32.9 g/dL (28.0-37.0); MCV 89.2 fL (80.0-100.0); RBC 4.06 mil/uL (4.50-6.00); RDW 15.5 % (10.5-14.5); WBC 12.7 thou/uL (4.0-11.0)
[2021-04-24 06:12] LABS: CREATININE 0.8 mg/dL (0.7-1.3); POTASSIUM 3.9 mmol/L (3.5-5.1)
[2021-04-24 07:10] VITALS: BP 134/82
--- NOTE | 2021-04-24 08:01 | NUR ---
Chart review, cm familiar with [facility] and have visited with is mom and prior to coming up to acute rehab. Prior to hospital, he was living at home with his . Independent. No DME. Manage own medication. Works outside the home. Drives vehicle. No insurance. Will cont. following as needed for dc needs.
--- NOTE | 2021-04-24 12:49 | NUR ---
Team meeting, recommendation: diet mech soft, thin liquids. 2 L nc, has pass value trach. Peg will be bolus only if eats less than 50%. SOA with activity. re team, cont therapy.
[2021-04-24 17:28] LABS: FOLIC ACID 11.7 ng/mL (8.6-58.9)
[2021-04-24 19:11] VITALS: BP 129/82
--- NOTE | 2021-04-25 04:53 | NUR ---
ASSUMED CARE AT 1900 PF 04/23. PATIENT IS A&OX4. DENIES PAIN OR SOB. INTERMITENT COUGH NOTED. TRACH CARE PERFORMED BY RT AT . ON CONTINUOUS 2L OF O2 VIA NC. FEEDING TUBE SITE INTACT, TUBE IS CLAMPED. PATIENT TOLERATE ALL ORAL MEDS ONE AT A TIME WITH THIN LIQUIDS. SLEEPING DURING HOURLY ROUNDS, FALL PRECAUTIONS IN PLACE. WILL CONTINUE TO MONITOR.
[2021-04-25 07:15] VITALS: BP 135/83
--- NOTE | 2021-04-25 19:37 | NUR ---
Assumed pt care at 0700. Pt was calm and cooperative with care. Alert and oriented x4. on 2l of O2 via Nasal Cannula. Pt uses a urinal. Pt ate more than 50% of his food. Took meds whole with thin liquid, no difficulty noted. Ambulates with a walker. Makes need known to staff. Had a bowel movement this shift. Call light within reach. Will continue to monitor.
--- NOTE | 2021-04-26 06:12 | NUR ---
PT REMAIN ALERT AND ORIENT TIMES FOUR. PASSE BOUCHRA VALVE PER TRACH WITH 2 LITERS O2 PER NC. PT IS PROGRESSING SLOWLY BUT WELL. THIS RN TOOK CARE OF THIS PT FROM ICU TO CCU AND NOW HERE. PT IS DOING STRIDES. UP WITH SBA WITH WALKER. VSS, AFEBRILE. REQUEST TO GET SOME SLEEP DURING THE NIGHT. DOOR CLOSED, ENVIRONMENT QUIET AND DARK. WILL CONTINUE TO MONITOR.
[2021-04-26 07:56] VITALS: BP 129/85
--- NOTE | 2021-04-26 11:44 | NUR ---
ASSUMED CARE AT 0700. PATIENT IS ALERT AND ORIENTED X4. PATIENT PAULINO'S, MARKET RESEARCH CONSULTANT ARE EQUAL. LUNGS ARE CLEAR AND DEMINISHED. PATIENT HAS TRACH WITH PURPLE CAP. WILL PLAN TRIAL WITH FOOD TECHNOLOGY TEACHER IF SATS STAY UP. CONTINUES ON 02 AT 2L PER N/C. PATIENT CONTINUES ON PO ABT WITHOUT ADVERSE AFFECTS. PATIENT HAS PEG TUBE AND ONLY RECIEVED T.F. OF VITAL IF HE EATS LESS THAN 50%. PATIENT IS SBA WITH GAIT BELT AND WALKER TO BATHROOM TO HAVE B.M. PATIENT USING URINAL TO VOID CHU COLORED URINE. PATIENT CONTINUES ON CALORIE COUNT. FALL AND SAFETY PROTOCOLS IN PLACE. DENIES PAIN. CONTINUES TO PROGRESS SLOWLY TOWARDS D/C GOALS. WILL CONTINUE TO MONITER.
[2021-04-26 19:27] VITALS: BP 117/74
--- NOTE | 2021-04-27 05:44 | NUR ---
PATINET CARE WAS RESUMED AT 0100. HE IS ALERT AND A MODERATE ASSIST WITH TRANSFER. 02 AT 2L/NC. DENIES ANY DISCOMFORT AT THIS EM. HAS TREACH AND OEG TUBE. CONTINUE CARE
[2021-04-27 08:00] VITALS: BP 118/79
--- NOTE | 2021-04-27 16:43 | NUR ---
cont. dcp as needed
--- NOTE | 2021-04-27 18:34 | NUR ---
ASSUMED CARE OF PT AT 0700. PT A&OX4. PT UP WITH SBA AND CANE. PT NO LONGER NEEDS FEEDING TUBE. PT TOLERATING DIET. WILL CONTNIUE TO MONITOR.
[2021-04-27 20:39] VITALS: BP 126/89
--- NOTE | 2021-04-28 01:56 | NUR ---
ASSUMED CARE AT 1900 OF 04/27. PATIENT IS A&OX4, DENIES PAIN OR DISCOMFORT. TOLERATED MEDICATIONS WHOLE ONE AT A TIME IN APPLE SAUCE. STANDBY ASSIST WITH TRANSFER AND AMBULATION USING CANE. ON CONTINUOUS O2 VIA NC, PATIENT REPORTED HE FELT LIKE HE WAS INUNDATED WITH OXYGEN ON 2L OF O2, O2Sat WAS 99%. PATIENT WEANED DOWN TO 1L AND RECHECKED AFTER 1 HOUR, AND O2Sat WAS 98%. PATIENT IS SLEEPING DURING HOURLY ROUNDS. FALL PRECAUTIONS IN PLACE, WILL CONTINUE TO MONITOR.
[2021-04-28 08:00] VITALS: BP 116/73
--- NOTE | 2021-04-28 10:29 | NUR ---
ASSUMED CARE AT 0700. PATIENT IS ALERT AND ORIENTED X4. PATIENT PAULINO'S, LOCAL SUPERINTENDENT ARE EQUAL. LUNGS ARE CLEAR AND DEMINISHED. PATIENT HAS TRACH IN PLACE AND IS CAPPED. PATIENT DOWN TO 1L PER N/C. ABD IS SOFT WITH BSX4. PATIENT HAS G.T.TUBE THAT IS PATIENT AND INTACT. PATIENT IS EATING 100% OF MEALS. PATIENT IS TAKING THIN LIQUIDS. PATIENT IS UP WITH GAIT BELT AND WALKER WITH SBA TO THE BATHROOM TO VOID AND HAVE BM. PATIENT IS VOIDING CHU COLORED URINE. FAMILY AT BEDSIDE. FALL AND SAFETY PROTOCOLS IN PLACE. DENIES PAIN AT THIS TIME. CONTINUES TO PROGRESS TOWARDS D/C GOALS. WILL CONTINUE TO MONITER.
[2021-04-28 19:00] VITALS: BP 116/80
--- NOTE | 2021-04-29 02:46 | NUR ---
assumed care approx 0 evening 04/28. pt alert and oriented x4, appropriate and cooperative. pt on room air tolerating well with trach capped off.peg tube in place intact no tube feeding at present. pt took hs meds with water tolerating well. pt up to bathroom to have bm tonight. now back to bed appears to be resting well. bed alarm on and call light in reach. will continue to monitor.
[2021-04-29 07:00] VITALS: BP 127/89
--- NOTE | 2021-04-29 08:12 | NUR ---
ASSUMED CARE AT 0700. PATIENT IS ALERT AND ORIENTED X4. PATIENT PAULINO'S, PASTRY MIXER ARE EQUAL. LUNGS ARE CLEAR AND DEMINISHED. ABD IS SOFT WITH BSX4. G.T. IS PATIENT AND INTACT. UP IN THE CHAIR FOR MEALS. PATIENT IS SBA WITH AMBULATION. FALL AND SAFETY PROTOCOLS IN PLACE .DENIES PAIN. CONTINUES TO PROGRESS TOWARDS D/C GOALS. WILL CONTINUE TO MONITER.
[2021-04-29 19:45] VITALS: BP 133/82
--- NOTE | 2021-04-30 01:48 | NUR ---
ASSUMED CARE AT 1900 OF 04/29. PATIENT IS A&OX4, ON RA. VSS.DENIES PAIN OR SOB. TRACHEOSTOMY CAPPED WITH PASSY-IVETH VALVE. PEG TUBE SITE INTACT, NO FEED RUNNING. PATIENT IS CURRENTLY ON A REGULAR DIET, TOLERATED MEDICATION WHOLE, ONE AT A TIME IN APPLE SAUCE. STAND BY ASSIST WITH TRANSFERS AND AMBULATION. FALL PRECAUTIONS IN PLACE, CALL LIGHT WITHIN REACH. WILL CONTINUE TO MONITOR.
[2021-04-30 05:57] LABS: HEMATOCRIT 34.8 % (42.0-52.0); HEMOGLOBIN 11.4 gm/dL (14.0-18.0); MCH 29.4 pg (26.0-34.0); MCHC 32.6 g/dL (28.0-37.0); MCV 90.1 fL (80.0-100.0); PLATELET COUNT 310 thou/uL (150-400); RBC 3.86 mil/uL (4.50-6.00); WBC 11.1 thou/uL (4.0-11.0)
[2021-04-30 06:31] LABS: CALCIUM 8.6 mg/dL (8.5-10.1); CREATININE 0.8 mg/dL (0.7-1.3); MAGNESIUM 1.8 mg/dL (1.8-2.4); POTASSIUM 4.1 mmol/L (3.5-5.1)
[2021-04-30 07:15] VITALS: BP 122/90
[2021-04-30 11:01] LABS: ABSOLUTE NEUTROPHILS 6.8 thou/uL (1.4-8.2); METAMYELOCYTES 3 %; MYELOCYTES 3 %
[2021-04-30 11:02] LABS: ANISOCYTOSIS 1+
--- NOTE | 2021-04-30 11:25 | NUR ---
ASSUMED CARE AT 0700. PATIENT IS ALERT AND ORIENTED X4. PATIENT PAULINO'S, LEHR STRIPPER ARE EQUAL. LUNGS ARE CLEAR AND DEMINISHED. ABD IS SOFT WITH BSX4. PATIENT HAS G.T. THAT IS PATENT AND INTACT. PATIENT IS UP IN THE CHAIR FOR MEALS. FALL AND SAFETY PROTOCOLS IN PLACE. DENIES PAIN AT THIS TIME. CONTINUES TO PROGRESS TOWARDS D/C GOALS. WILL CONTINUE TO MONITER.
--- NOTE | 2021-04-30 12:20 | NUR ---
Nutrition: Please obtain accurate weight on patient.
[2021-04-30 20:01] VITALS: BP 122/80
--- NOTE | 2021-05-01 00:53 | NUR ---
ASSUMED CARE AT 1900 OF 04/30. PATIENT IS A&OX4. DENIES PAIN OR SHORTNESS OF BREATH. PATIENT'S SPOUSE WAS PRESENT AT START OF SHIFT AND HAS BEEN CLEARED TO ASSIST PATIENT WITH TRANSFERS AND AMBULATION WHILE PRESENT IN ROOM. STANDBY ASSIST WITH TRANSFERS AND ABULATION W/O GAIT AID. TOLERATED ORAL MED WHOLE WITH THIN LIQUID, ONE AT A TIME. FALL PRECAUTIONS IN PLACE, SLEEPING DURING HOURLY ROUNDS. CALL LIGHT WITHIN REACH, WILL CONTINUE TO MONITOR.
[2021-05-01 07:15] VITALS: BP 131/89
[2021-05-01 09:00] VITALS: BP 131/89
--- NOTE | 2021-05-01 11:52 | NUR ---
ASSUMED CARE OF PT AT 0700. PT A&OX4. PT UP MOD I IN ROOM WITH . PT TOLERATING DIET. PT TAKES PILLS ONE AT A TIME WITH WATER. PT PROGRESSING TOWARDS GOALS QUICKLY. WILL CONTINUE TO MONITOR.
--- NOTE | 2021-05-01 13:13 | NUR ---
Team meeting, recommendation: wean off oxygen. has speaking valve. Tube feeding prn, flush cont., education with mom and . dressing independent. walking without dme. desat little in to 80 on room but recovered quickly. has pulse ox for home use. training with and his mom. encouraged to take rest break. dc home with home exercise program , [facility] nurse. send home with trach supplies and peg care supplies. teach family trach and peg care. Will need pcp. Follow up with dr hope. [place] 05/02. possible [facility] supplies from [facility].
--- NOTE | 2021-05-01 15:56 | EKG ---
[address] [address] ELECTROCARDIOGRAM REPORT Name: ROSALINORORO MoraKayley CALDERON Room #: 504-1 ADM IN M.R.#: [id number] Admission: 04/23/21 Attend Phys: Vargas Patricio MD Discharge: Date of : 72 Report #: [id number] [facility] Test Date: 2021-05-01 Test Time: 15:54:58 Pat Name: BELLA HOLM Department: Room: [facility] Gender: M Angle Shear Operator: MICHELLE : 1970 Requested By: Francesca Horowitz Order Number: [id number] : Marquis Benton Measurements Intervals [place] Rate: 75 P: 40 PA: 121 QRS: 41 QRSD: 88 T: 25 QT: 360 QTc: 402 Interpretive Statements Sinus rhythm Compared to ECG 04/04/2021 08:45:56 Atrial fibrillation no longer present T-wave abnormality no longer present Electronically Signed On 05-01-2021 15:56:29 CDT by Marquis Benton [email or web address] <ELECTRONICALLY SIGNED> By: Marquis Benton MD, [facility] 05/01/21 1556 [id number] Marqusi Benton MD, FAC /EPI
[2021-05-01] MEDS ORDERED: VITAMIN D325 MC2 PO (16:20)
[2021-05-01] MEDS ORDERED: ZINC SULFATE50 MG PO (16:20)
[2021-05-01] MEDS ORDERED: CARDIZEM CD 18180 M3 PO (16:20)
[2021-05-01] MEDS ORDERED: VITAMIN C1000 MG PO (16:20)
[2021-05-01 19:34] VITALS: BP 129/89
--- NOTE | 2021-05-02 03:57 | NUR ---
ASSUMED CARE AT 1900 OF 05/01. PATIENT A&OX4. DENIES PAIN OR SOB, ON ROOM AIR. MODIFIED INDEPENDENT IN ROOM. TOLERATE ORAL MED WHOLE WITH THIN LIQUIDS. RT PERFORMED TRACH CARE AT . PEG TUBE DRESSING CDI. CALL BACK RECEIVED FROM DR. SERRATO, HE STATED A PROVIDER WILL COME AND SEE PATIENT CONCERNING TRACH STITCHES BEFORE DISCHARGE IN THE MORNING. NO CONCERNS AT THIS TIME. FALL PRECAUTIONS IN PLACE, CALL LIGHT WITHIN REACH. WILL CONTINUE TO MONITOR.
[2021-05-02 07:15] VITALS: BP 122/87
[2021-05-02 07:45] VITALS: BP 122/87
--- NOTE | 2021-05-02 13:55 | NUR ---
ok to vouch for trach supplies for home. sergey meléndez and yajaira have no trach cleaning kits. [facility] here to take him home.
[2021-05-02 14:19] VITALS: BP 122/87
[2021-05-03] MEDS ORDERED: LOPRESSOR50 PO (08:53)
== END 2021-05-02 14:49 | disposition home or self-care (01) | DRG 91 ==
PROVIDERS: Nurse Practitioner; ADMIT Physical Medicine & Rehabilitation; ATTEND Physical Medicine & Rehabilitation
DX: G72.81 Critical illness myopathy (principal); J96.01 Acute respiratory failure with hypoxia; J15.6 Pneumonia due to other Gram-negative bacteria; G92 Toxic encephalopathy; U07.1 COVID-19; J12.82 Pneumonia due to coronavirus disease 2019; A41.89 Other specified sepsis; E46 Unspecified protein-calorie malnutrition; R13.10 Dysphagia, unspecified; I10 Essential (primary) hypertension; D64.9 Anemia, unspecified; I48.0 Paroxysmal atrial fibrillation; Z93.1 Gastrostomy status; Z93.0 Tracheostomy status; Z91.011 Allergy to milk products; Z68.20 Body mass index [BMI] 20.0-20.9, adult
CPT/HCPCS: 10112

== ENCOUNTER → 2021-05-14 | Outpatient (CLI) | payer OTHER ==
[~2021-05-14] MED LIST changes: +VITAMIN C1000 MG PO; +VITAMIN D325 MC2 PO; +ZINC SULFATE50 MG PO
== END ==
LOC: RAD 11:30
PROVIDERS: ATTEND Internal Medicine Pulmonary Disease
DX: R06.02 Shortness of breath (principal); M47.814 Spondylosis without myelopathy or radiculopathy, thoracic region

== ENCOUNTER → 2021-06-12 | Outpatient (CLI) | payer OTHER | LOC: RAD 12:08 | PROVIDERS: ATTEND Internal Medicine Pulmonary Disease | DX: R06.02 Shortness of breath (principal) ==